=== PATIENT | female | born 1955 | race Caucasian/White ===

== ENCOUNTER 2024-09-30 08:39 | Day surgery (SDC) | payer MEDICARE, SELFPAY ==
[2024-09-26 12:50] VITALS: BMI 21.9
[2024-09-30 08:47] VITALS: BMI 21.3
[2024-09-30] MEDS: Lactated Ringers 1,000 ML 80 ML IVCONT (09:00)
[2024-09-30 09:06] VITALS: BP 141/65; PULSE 87; RESP 18; TEMP 36.7; O2SAT 96
--- NOTE | 2024-09-30 09:54 | MHC.SHP ---
Pre-Procedural Eval Section A - 24 Hr Update-Section A only Date of Service: 09/30/24 The patient is an INPATIENT: No Changes since office visit: No Cold of Flu in the past 2 weeks, No New Medical Problems, No Changes in Medication and No Patient answered all questions The patient has been examined within 24 hours of the surgical procedure. The History & Physical has been completed within 30 days and I have reviewed it.: Yes Section B - Complete if H&P > 30 days Chief Complaint: screening Allergies: Allergies Allergy/AdvReac Type Severity Reaction Status Date / Time mold Allergy Unknown Unknown Verified 09/30/24 09:21 metals Allergy Unknown Unknown Uncoded 09/30/24 09:21 Plan I have reviewed the history and physical and performed a pertinent physical examination on my patient. No changes have occurred unless specified. Time Spent With Patient Time: Total time managing care of this patient today ____ minutes.
--- NOTE | 2024-09-30 10:00 | HO.ANESPROP2 ---
HPI - Anesthesia Eval Consult details Narrative: 68 yo F presenting for colonoscopy [facility] Past Medical History Medical History HTN (hypertension) Family History Family history of problems with anesthesia: No Surgical History Surgical History Hx of appendectomy History of lumpectomy of right breast H/O colonoscopy History of Problems with Anesthesia: No Social History Social History (Updated 09/26/24 @ 12:50 by Gauri Rios RN) Are you a primary intensive care medicine specialist to a significant other at home: No Do you presently have visiting nurse or other home services: No Patient Tobacco Use Status: Never used Tobacco Use of substances other than those prescribed or required for medical reasons: No Have you been hit, kicked, punched, or otherwise hurt by someone within the past year? If so, by whom?: No Are you DNR?: No Advance Directives: No Advance Directives Information Provided: Yes Recently lost weight without trying: No Nutrition Risks: No Nutritional Risk Meds Allergies Allergy/AdvReac Type Severity Reaction Status Date / Time mold Allergy Unknown Unknown Verified 09/30/24 09:21 metals Allergy Unknown Unknown Uncoded 09/30/24 09:21 Active Medications: Current Medications Lactated Ringer's (Lr) 1,000 mls @ 80 mls/hr IVCONT .[id number] SUSHANT Last Admin: 09/30/24 09:00 Dose: 80 mls/hr Home Medications ?Medication ?Instructions ?Recorded ?Confirmed ?Last Taken ?Type fexofenadine 60 mg tablet 60 mg PO DAILY PRN Allergy Symptoms 09/26/24 09/26/24 Unknown History hydrochlorothiazide 12.5 mg tablet 12.5 mg PO DAILY 09/26/24 09/26/24 Unknown History Exam Exam Date and Time: 09/30/24 1000 Height,Weight and Vital Signs: Height 5 ft 7 in Weight 61.689 kg Last Vital Signs Temp 98.1 F 09/30/24 09:06 Pulse 87 09/30/24 09:06 Resp 18 09/30/24 09:06 BP 141/65 H 09/30/24 09:06 Pulse Ox 96 09/30/24 09:06 O2 Del Method Room Air 09/30/24 09:06 Airway Mallampati Class: I TM Dist: >3cm Neck ROM: Full Loose/Missing/Broken Teeth: No (patient denies any loose or broken teeth) Heart: S1S2 Lungs: CTAB Assessment and Plan Assessment Anesthesia Assessment: Anesthesia Plan Discussed and Chart Reviewed Final Anesthetic Review Family History of Problems with Anesthesia: No History of Problems with Anesthesia: No NPO: Yes ASA Class: II Final Preanesthetic Review: No Changes in Pt Med Stat, Meds/Allgs Chart Reviewed, Consent Obtained/Reviewed and Anes Risks/Benef Reviewed Patient Risk: Low Procedure Risk: Low Anesthetic Plan Anesthetic Plan: MAC: and Agree w/ Assess. and Plan Disposition: Standard PACU
[2024-09-30 10:28] VITALS: BP 104/53; PULSE 74; RESP 16; TEMP 36.6; O2SAT 97
--- NOTE | 2024-09-30 10:43 | OP_ITS ---
DATE OF SERVICE: 09/30/2024 SURGEON: David Finnegan MD INDICATIONS: Colon cancer screening and prior history of adenomatous colon polyps. PREOPERATIVE DIAGNOSIS: POSTOPERATIVE DIAGNOSIS: PROCEDURE PERFORMED: Colonoscopy to the terminal ileum. ESTIMATED BLOOD LOSS: COMPLICATIONS: ANESTHESIA: Monitored anesthesia care. ASSISTANTS: SPECIMENS: DESCRIPTION OF PROCEDURE: A history and physical was performed. The risks and benefits of the procedure were explained to the patient and informed consent was obtained. The patient was placed in the left lateral decubitus position. A digital rectal exam was performed and was found to be normal. The Olympus pediatric video colonoscope was introduced into the rectum and advanced to the cecum. The cecum was identified by transillumination, palpation, and identification of ileocecal valve. Examination was performed and the scope was removed. She tolerated the procedure well and was returned to recovery area in stable condition. FINDINGS: The terminal ileum was examined and appeared normal. The visualized colonic mucosa was normal. The quality of the prep was good. No polyps were identified. Retroflexed examination was normal. IMPRESSION: Normal colonoscopy. RECOMMENDATIONS: 1. Follow up as needed. 2. Repeat colonoscopy is recommended in 10 years for average-risk individuals. MD KB Jarrett/VICK / [phone]
--- OUTSIDE RECORDS SUMMARY | 2024-10-01 16:22 | XMS_ITS ---
Author Organization [facility] Address [address] [place] [address] Care Team Providers Care Business Broker Name Role Phone Alaina Colby MD Primary Care Provider David Schmitt Jr Unavailable ALLERGIES Allergen (clinical drug ingredient) Drug/Non Drug Allergy documented on EMR Reaction Allergy Type Onset Date Status mold,metals (uncoded) Unknown Allergy Active REASON FOR VISIT Patient presents today for a recall colonoscopy MEDICATIONS Medication SIG (Take, Route, Frequency, Duration) Notes Start Date End Date Status hydroCHLOROthiazide 12.5 MG 1 tablet in the morning Orally Once a day for 30 day(s) Active Jessica Allergy 60 MG 1 tablet as needed Orally Once a day Active MiraLax (colon prep) 17 GM/SCOOP mixed with Gatorade or Crystal Light Orally begin at 5:00 p.m. the day before the procedure for 1 day 09/08/2024 Active SOCIAL HISTORY Tobacco Use: Social History Observation Description Date Details (start date - stop date) Never Smoker NA - NA Sex Assigned At : Social History Observation Description Sex Assigned At Unknown Tobacco Use/Smoking Question Answer Notes Patient is a nonsmoker Alcohol Screen Question Answer Notes Did you have a drink contain ing alcohol in the past year? Yes How often did you have a dri nk containing alcohol in the past year? Monthly or less (1 point) How many drinks did you have on a typical day when you were drinking in the past year? 1 or 2 drinks (0 point) How often did you have 6 or more drinks on one occasion in the past year? Never (0 point) Points 1 Interpretation Negative VITAL SIGNS BMI 21.98 kg/m2 09/08/2024 Blood pressure systolic 000 mm Hg 09/08/20 24 Blood pressure diastolic 00 mm Hg 024 Height 67 in 09/08/2024 Temperature 97.7 degrees Fahrenheit 09/08/20 24 Weight 140 lb 6 oz lbs 09/08/2024 Encounters Encounter Location Date Provider Diagnosis [facility] [address] [place] [address] 09/08/2024 David Finnegan Jr Colon cancer screening Z12.11 ; Encounter for other preprocedural examination Z01.818 and [facility] current use of diuretic Z79.899 ASSESSMENTS Encounter Date Diagnosis Assessment Notes Treatment Notes Treatment Clinical Notes 09/08/2024 Colon cancer screening (ICD-10 - Z12.11) Colonoscopy material was printed 09/08/2024 Encounter for other preprocedural examination (ICD-10 - Z01.818) 09/08/2024 [facility] current use of diuretic (ICD-10 - Z79.899) PLAN OF TREATMENT Medication Medication Name Sig Start Date Stop Date Notes MiraLax (colon prep) 17 GM/SCOOP mixed with Gatorade or Crystal Light Orally begin at 5:00 p.m. the day before the procedure for 1 day 09/08/2024 Treatment Notes Assessment Notes Colon cancer screening Colonoscopy mater ial was printed Future Test Test Name Order Date COLONOSCOPY 09/08/2024 Next Appt Details Follow Up: 1 Year, Reason: Progress Notes * Examination Category Sub-Category Detail Notes General Examination GENERAL APPEARANCE: in no ac cabazon distress HEAD: normocephalic EYES: sclera non-icteric NECK/THYROID: no lymphadenopathy HEART: S1, S2 normal, no mu rmurs CHEST: normal shape and exp ansion LUNGS: clear to auscultatio n bilaterally ABDOMEN: soft, nontender, non distended, bowel sounds present, no organomegaly SKIN: anicteric EXTREMITIES: no clubbing, cyanosi s, or edema PSYCH: cognitive function i ntact ORAL CAVITY: mucosa moist
--- OUTSIDE RECORDS SUMMARY | 2024-10-01 16:22 | XMS_ITS ---
Author Organization [facility] Address [address] [place] [address] Care Team Providers Care Rec Therapist Name Role Phone Alaina Colby MD Primary Care Provider David Schmitt Jr REASON FOR VISIT screening Encounters Encounter Location Date Provider Diagnosis [facility] [place] [address] [place], [place] [phone] 09/30/2024 Davdi Finnegan Jr PLAN OF TREATMENT No Information
--- OUTSIDE RECORDS SUMMARY | 2024-10-01 16:23 | XMS_ITS | Patient Health Record ---
Author Organization [facility] Address [address] [place] [address] Care Team Providers Care Line Walker Name Role Phone Alaina Colby MD Primary Care Provider David Schmitt Jr Unavailable ALLERGIES Allergen (clinical drug ingredient) Drug/Non Drug Allergy documented on EMR Reaction Allergy Type Onset Date Status mold,metals (uncoded) Unknown Allergy Active REASON FOR REFERRAL No Information MEDICATIONS Medication SIG (Take, Route, Frequency, Duration) [...] the procedure for 1 day 09/08/2024 Active IMMUNIZATIONS Vaccine Route Administration Date Status Comme nts Influenza Unknown 08/15/2018 Administered Influenza Unknown 08/26/2024 Administered SOCIAL HISTORY Tobacco Use: Social History Observation [...] Never (0 point) Points 1 Interpretation Negative PROBLEMS Problem Type ICD Code Onset Dates Problem Status W/U Status Risk SNOMED Code Notes Problem Colon cancer screening (Z12.11) Active confirmed 381980021 Problem Encounter for other preprocedural examination (Z01.818) Active confirmed 339694992 Problem long-term current use of diuretic (Z79.899) Active confirmed [id number] VITAL SIGNS Temperature 97.7 degrees Fahrenheit 09/08/2024 Blood pressure diastolic 00 mm Hg 09/08/2024 Height 67 in 09/08/2024 Blood pressure systolic 000 mm Hg 09/08/2024 Weight 140 lb 6 oz lbs 09/08/2024 BMI 21.98 kg/m2 09/08/2024 Encounters Encounter Location Date Provider Diagnosis [facility] Out[facility] [address] [place], [place] [phone] 09/30/2024 David Finnegan Jr [facility] [address] [place] [address] 09/08/2024 David Finnegan Jr Colon cancer screening Z12.11 ; Encounter for other preprocedural examination Z01.818 and long-term current use of diuretic Z79.899 ASSESSMENTS Encounter Date Diagnosis Assessment Notes Treatment Notes Treatment Clinical Notes 09/08/2024 Colon cancer screening (ICD-10 - Z12.11) Colonoscopy material was printed 09/08/2024 Encounter for other preprocedural examination (ICD-10 - Z01.818) 09/08/2024 salvage determiner current use of diuretic (ICD-10 - Z79.899) PLAN OF TREATMENT Future Test Test Name Order Date COLONOSCOPY 07/16/2019 COLONOSCOPY 09/08/2024 Insurance Providers Payer Name Payer Address Payer Phone Subscriber Number Group Number Insured Name Patient Relationship to Insured Coverage Start Date Coverage End Date [facility] [address] [place] [address] [id number] DEJA [place] Self - patient is the insured MEDICAL (GENERAL) HISTORY Medical History History ICD Code Environmental allergies Hypertension Colonoscopy 08/09, tubular adenoma, five -year followup Surgical History Surgery Date(Month/Year) lumpectomy, right breast appendectomy
== END 2024-09-30 11:19 | disposition home or self-care (01) ==
PROVIDERS: PCP Internal Medicine; Visit Provider Internal Medicine Gastroenterology
PROC: 0DJD8ZZ Inspection of Lower Intestinal Tract, Via Natural or Artificial Opening Endoscopic (ICD-10-PCS; CPT 45378; principal; 2024-09-30 11:00)
DX: Z12.11 Encounter for screening for malignant neoplasm of colon (principal); Z86.0101 Personal history of adenomatous and serrated colon polyps; I10 Essential (primary) hypertension; J30.2 Other seasonal allergic rhinitis; Z79.899 Other long term (current) drug therapy
CPT/HCPCS: G0105; J2003; J2704

== ENCOUNTER 2025-05-07 14:51 | Outpatient (AMB) | payer MEDICARE, SELFPAY ==
--- OUTSIDE RECORDS SUMMARY | 2024-09-30 07:00 | XMS_ITS ---
Author Organization [facility] Address [address] [place] [address] Care Team Providers Care Salvage Winder And Inspector Name Role Phone SLIME LAO Primary Care Provider David Wadsworth Jr Unavailable REASON FOR VISIT screening Encounters Encounter Location Date Provider Diagnosis [facility] [place] [address] [place] [phone] 09/30/2024 David Finnegan Jr Colon cancer screening Z12.11 and Personal history of colonic polyps Z86.0100 Assessments Encounter Date Diagnosis (ICD Code) Assessment Notes Treatment Notes Treatment Clinical Notes Section Notes 09/30/2024 Colon cancer screening (ICD-10 - Z12.11) 09/30/2024 Personal history of colonic polyps (ICD-10 - Z86.0100) Plan Of Treatment No Information Progress Notes * DEJA GALVEZDOB: [birth year] (69 yo F)Acc No.[id number]:09/30/2024 COLON WITH MAC Patient: Guerrero ROMANDEJA HAYNES Provider: Rosa Maria Finnegan MD :1955 A ge:68 Y S ex:Female Date:09/30/2024 Address:[address] [place] [address] Pcp:SLIME LAO Subjective: * Chief Complaints: * 1 . Screening. * Medical History: Objective: * Vitals: Assessment: * Assessment: 1. C olon cancer screening - Z12.11 (Primary) 2 . P ersonal history of colonic polyps - Z86.0100 Plan: * Treatment: * Procedure Codes: 4 5378 DIAGNOSTIC COLONOSCOPY, 0529F INTRVL 3+YRS PTS CLNSCP DOCD, 0528F RCMND FLW-UP 10 YRS DOCD * * The named appointment provid er may or may not be the originator of this progress note, and it is not deemed complete until electronically signed by the appointment provider. Sign off status: Pending * Provider: Rosa Maria Finnegan MD Date: 1 2023 Generated for Dina montano/Hui/Leidaitting on: 0 05/07/2025 03:32 PM EDT
--- NOTE | 2025-05-07 14:51 | MHC.PC.OV ---
Vital Signs 05/07/25 14:59 Height 5 ft 5.51 in Weight 145 lb BMI 23.8 BP 144/80 H Blood Pressure Location Rt brachial Position Sitting Respiration 20 Pulse 65 Pulse Source Pulse Oximeter Temp 99.1 F Temp Source Temporal Artery Scan Pulse Oximetry (%) 95 Oxygen Delivery Method Room Air Intake Visit Reasons: Est. Care HTN Associate Director Of Biostatistics Required: No Accompanied by: Self / Same As Patient Allergies mold Allergy (Unknown, Verified 05/07/25 15:56) Unknown metals Allergy (Unknown, Uncoded 05/07/25 15:56) Unknown Medication List - Last Reconciled 05/07/25 by Simin River PA-C cholecalciferol (vitamin D3) 50 mcg PO DAILY fexofenadine 60 mg PO DAILY PRN hydrochlorothiazide 12.5 mg PO DAILY Tobacco use date assessed: 05/07/25 Fall risk assessment: No Falls in past year Last assessed Fall Risk: 05/07/25 Dental Screening Dental Screen Date: 05/07/25 Did you have a dental visit in the last 12 months?: Yes Did you have a dental problem in the last 6 months where you did not have access to dental care?: No Was dental information given to patient?: Patient has dentist HPI Est. Care HTN HPI Details The patient is a 69-year-old female presenting to a establish a new Primary care provider and management of chronic conditions. 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 Her blood pressure was slightly elevated at 144 mmHg during this visit. The patient had a normal colonoscopy on September 30, 2024, with a 10-year follow-up plan. She is scheduled for a mammogram in September and a bone density scan on July 24. [facility] Medical History Encounter for preventive care Establishing care with new doctor, encounter for HTN (hypertension) Surgical History Hx of appendectomy History of lumpectomy of right breast H/O colonoscopy (~09/30/24) Family History Father Diabetes Heart problem Mother Dementia Social History Housing: House Are you a primary child care associate teacher to a significant other at home: No Do you presently have visiting nurse or other home services: No Alcohol intake: current Alcohol intake frequency: holidays/special occasions only Alcohol type: wine Patient Tobacco Use Status: Former Tobacco user service: No Current occupational status: employed Cognitive needs: No Hearing needs: No Vision needs: Yes (rx glasses) Questionnaire PHQ-9 Over the last 2 weeks, how often have you been bothered by any of the following problems? 1. Little interest or pleasure in doing things: not at all 2. Feeling down, depressed, or hopeless: not at all 3. Trouble falling or staying asleep, or sleeping too much: not at all 4. Feeling tired or having little energy: not at all 5. Poor appetite or overeating: not at all 6. Feeling bad about yourself - or that you are a failure or have let yourself or your family down: not at all 7. Trouble concentrating on things, such as reading the newspaper or watching television: not at all 8. Moving or speaking so slowly that other people could have noticed. Or the opposite - being so fidgety or restless that you have been moving around a lot more than usual: not at all 9. Thoughts that you would be better off or of hurting yourself in some way: not at all Total score: 0 Depression Screening Interpretation: Negative Depression Screening Done: Yes 18210 - PHQ-9 Billing: Yes Source: Developed by Drs. Grant Campos, Naomy Figueroa, Andi Altamirano and colleagues, with an educational eda from [employer]. Thrive Questionnaire Date Thrive assessed: 05/07/25 I am a: Patient What is your living situation today?: I have a steady place to live Within the past 12 months, did the food you bought not last and you didn't have the money to get more?: Never true Within the past 12 months, did you worry whether your food would run out before you got money to buy more?: Never true Do you have trouble paying for medicines?: No Do you have trouble getting transportation to medical appointments?: No Do you have trouble paying your heating and electricity bill?: No Do you have trouble taking care of your child, family member or friend?: No Do you have trouble with day-to-day activities such as bathing, preparing meals, shopping, managing finances, etc.?: No Are you currently unemployed and looking for a job?: No Are you interested in more education?: No Please select the resources that you would like help with: None Currently or been in a relationship where the following occur: No concerns reported THRIVE Score: 0 AUDIT C Alcohol Use Questionnaire (AUDIT-C) 1. How often do you have a drink containing alcohol?: Monthly or less 2. How many drinks containing alcohol do you have on a typical day when you are drinking?: 1 or 2 3. How often do you have six or more drinks on one occasion?: Never Total Score: 1 Score Reviewed/Action Taken: No LACY-7 AMB Questionnaire LACY-7 Date LACY - 7 assessed: 05/07/25 Feeling nervous, anxious, or on edge: 0 = Not at all Not being able to stop or control worryin = Not at all Worrying too much about different things: 0 = Not at all Trouble relaxin = Not at all Being so restless that it is hard to sit still: 0 = Not at all Becoming easily annoyed or irritable: 0 = Not at all Feeling afraid as if something awful might happen: 0 = Not at all Total LACY-7 score (0-4 normal; 5-9 mild; 10-14 moderate; 15-21 severe): 0 Source: Developed by Drs. Grant Campos, Naomy Figueroa, Andi Altamirano and colleagues, with an educational eda from [employer]. LACY-7 Assessment Billing LACY-7 Assessment Tool: LACY-7 Assessment 91113 Review of Systems Const Details: - Cardiovascular: Denies chest pain, orthopnea, or syncope. - Gastrointestinal: Denies black or bloody stools, abdominal pain. - Respiratory: Denies dyspnea or shortness of breath. - Musculoskeletal: Denies recent falls. Physical exam (Primary Care) Vital Signs: Last Vital Signs Temp 99.1 F 05/07/25 14:59 Pulse 65 05/07/25 14:59 Resp 20 05/07/25 14:59 BP 144/80 H 05/07/25 14:59 Pulse Ox 95 05/07/25 14:59 Oxygen Delivery Method Room Air 05/07/25 14:59 Care Plan Goal for BP management: <140/90 patient to monitor her blood pressure at home and bring blood pressure log at next visit BMI result Body Mass Index 23.8 Normal BMI Tobacco/Smoking Status: Tobacco use Status Tobacco use date assessed 05/07/25 05/07/25 14:59 Patient Tobacco Use Status Former Tobacco user 05/07/25 15:10 PHQ-9: PHQ-9 Score PHQ-9: Total score 0 05/07/25 14:59 Depression Screening Interpretation: Negative Thrive Assessment: Date of Thrive Assessment Date Thrive assessed 05/07/25 05/07/25 14:59 Currently or been in a relationship where the following occur: No concerns reported Const Other: Appearance: Alert. Oriented X3. No acute distress. Head: Normal external exam. Normocephalic. Atraumatic. Eyes: Pupils are equal, round, and reactive to light. Extraocular movements intact. Conjunctiva and sclera normal. Eyelids normal. Ears: External auditory canal normal. Tympanic membranes normal. Throat: Pharynx normal. Uvula midline. Moist mucous membranes. Neck: Normal inspection. Neck supple. Full range of motion. No adenopathy. Thyroid Normal. No meningeal signs. No neck mass noted. Cardiovascular: Normal heart rate and rhythm. Heart sound normal. No murmurs noted. Pulses normal throughout. Respiratory: No respiratory distress. Painless inspiration. Breath sounds normal. No wheezes/rales/rhonchi noted. Chest nontender. No accessory muscle usage noted or decreased air movement noted. Abdomen: Soft and nontender. Bowel sounds normal in all 4 quadrants. No distention noted. No organomegaly noted. No visible injury noted. Back: No costovertebral angle tenderness. Full range of motion noted. Skin: Skin warm and dry. Normal skin color. Normal skin turgor. No rashes/lesions/lacerations noted. Extremities: No lower extremity edema. Extremities exhibit normal range of motion. Extremities nontender. Neuro: Oriented X 3. No motor deficit. No sensory deficit. Reflexes normal. Coding Level of Care Code New Pt Level 4 (21486) Complex EM visit Add On G2211 Diagnoses Establishing care with new doctor, encounter for Z76.89 HTN (hypertension) I10 Encounter for preventive care Z00.00 Additional Codes PHQ-9 - 80295 - PHQ-9 Billing: Yes ([id number]) LACY-7 Assessment Billing - LACY-7 Assessment Tool: LACY-7 Assessment 27929 ([id number]) Assessment & Plan Assessment & Plan (1) Establishing care with new doctor, encounter for: Code(s): Z76.89 - Persons encountering health services in other specified circumstances Category: Medical (2) HTN (hypertension): Code(s): I10 - Essential (primary) hypertension Category: Medical Plan: The patient's essential hypertension is managed with hydrochlorothiazide, and her blood pressure was slightly elevated at 144 mmHg during this visit. It was advised to monitor and keep a blood pressure log and bring at next visit. Condition is chronic and stable continue to monitor. (3) Encounter for preventive care: Code(s): Z00.00 - Encounter for general adult medical examination without abnormal findings Category: Medical Plan: The patient had a normal colonoscopy on September 30, 2024, and is on a 10-year follow-up plan. The patient is scheduled for a mammogram in September. The patient has a bone density scan scheduled for July 24. Plan Plan Patient was informed and verbally consented to the use of an ambient scribe for clinic note documentation during this visit. 1. Essential Hypertension The patient's essential hypertension is managed with hydrochlorothiazide, and her blood pressure was slightly elevated at 144 mmHg during this visit. It was advised to monitor and retake it. 2. Preventative Care: Colonoscopy The patient had a normal colonoscopy on September 30, 2024, and is on a 10-year follow-up plan. 3. Preventative Care: Mammogram The patient is scheduled for a mammogram in September. 4. Preventative Care: Bone Density Scan The patient has a bone density scan scheduled for July 24. During the visit, we discussed the management of the patient's essential hypertension, emphasizing the importance of monitoring her blood pressure and ensuring medication adherence. We also reviewed her preventative care schedule, confirming the normal results of her recent colonoscopy and the upcoming mammogram and bone density scan appointments. Patient Instructions: - Continue taking hydrochlorothiazide as prescribed. - Monitor blood pressure regularly and report any significant changes. - Attend scheduled mammogram and bone density scan appointments. - Follow up in six months or sooner if needed.
[2025-05-07 14:59] VITALS: BP 144/80; PULSE 65; RESP 20; TEMP 37.3; O2SAT 95; BMI 23.8
== END 2025-05-07 15:36 | disposition home or self-care (01) ==
LOC: HO.HMCSH 14:51
PROVIDERS: Visit Provider Physician Assistant Medical
DX: Z76.89 Persons encountering health services in other specified circumstances (principal); I10 Essential (primary) hypertension; Z00.00 Encounter for general adult medical examination without abnormal findings

== ENCOUNTER → 2025-05-07 14:51 | Outpatient (BNVA) | payer MEDICARE, SELFPAY | PROVIDERS: Visit Provider Physician Assistant Medical | DX: Z00.00 Encounter for general adult medical examination without abnormal findings (principal); I10 Essential (primary) hypertension; Z76.89 Persons encountering health services in other specified circumstances | CPT/HCPCS: 96127; 99202 ==

== ENCOUNTER 2025-08-04 10:05 | Outpatient (REF) | payer MEDICARE, SELFPAY ==
--- OUTSIDE RECORDS SUMMARY | 2024-09-30 07:00 | XMS_ITS ---
Author Organization [facility] Address [address] [place] [address] Care Team Providers Care Sales Assistant Entertainment And Media Name Role Phone SLIME LAO PA-C Primary Care Provider David Zaidi Jr Unavailable REASON FOR VISIT screening Encounters Encounter Location Date Provider Diagnosis [facility] Outpatient [address] [place], [place] [phone] 09/30/2024 David Finnegan Jr Colon cancer screening Z12.11 and Personal history of colonic polyps Z86.0100 Assessments Encounter Date Diagnosis (ICD Code) Assessment Notes Treatment Notes Treatment Clinical Notes Section Notes 09/30/2024 Colon cancer screening (ICD-10 - Z12.11) 09/30/2024 Personal history of colonic polyps (ICD-10 - Z86.0100) Plan Of Treatment No Information Progress Notes * DEJA GALVEZDOB: [birth year] (69 yo F)Acc No.[id number]:09/30/2024 COLON WITH MAC Patient: DEJA LUNA Provider: Rosa Maria Finnegan MD :1955 A ge:68 Y S ex:Female Date:09/30/2024 Address:[address] [place] [address] Pcp:SLIME LAO PA-C Subjective: * Chief Complaints: * 1 . [...] 1 2023 Generated for Dina montano/Hui/Leidaitting on: 11:37 AM EDT
--- NOTE | ~2025-08-04 | MM_ITS ---
EXAMINATION: DXA BONE DENSITY AXIAL HISTORY: M81.0 - Age-related osteoporosis without current pathological fracture TECHNIQUE: Chalkable Dual energy absorptiometry (DEXA) of the lumbar spine, total left hip, and femoral neck was performed. COMPARISON: There are no prior studies for comparison. FINDINGS: The bone mineral density of the lumbar spine is 0.927 g/cm2, corresponding to a T-score of -2.0, and a Z-score of -0.4. This is indicative of osteopenia. The bone mineral density of the left total hip is 0.747 g/cm2, corresponding to a T-score of -2.1, and a Z-score of -0.7. This is indicative of osteopenia. The bone mineral density of the left femoral neck is 0.740 g/cm2, corresponding to a T-score of -2.1, and a Z-score of -0.5. This is indicative of osteopenia. FRACTURE RISK: The FRAX index suggests a risk of major osteoporotic fracture of 11.9%, and of hip fracture 2.4%. MM/XR DEXA axial skeleton IMPRESSION: Based on bone mineral density, and according to World Health Organization (WHO) criteria, the diagnosis is consistent with osteopenia. Statistically, 68% of repeat scans fall within 1 SD (+/- 0.010 g/cm2 for AP spine L1-L4) and 1 SD (+/- 0.012 g/cm2 for femur total) FRAX is a trademark of the [employer] [place] for Metabolic Bone Disease, a World Health Organization (WHO) Collaborating Center. Electronically signed by: Grant Weaver MD 08/04/2025 10:34 AM EDT
--- OUTSIDE RECORDS SUMMARY | 2025-08-04 11:36 | XMS_ITS | Encounter Summary ---
Author Organization [facility] Address [address] [place] [phone] Phone Care Team Providers Care Bottling Supervisor Name Role Phone Alaina Colby MD Primary Care Provider Simin River Primary Care Provider [phone] Encounter Details Date Type Department Care Team (Late st Contact Info) Description 08/31/2023 Transcribe Orders Virtual Department [address] [place] [address] Alaina Colby MD [address] [place] [phone] [email or web address] Breast screening (Primary Dx) Social History Tobacco Use Types Packs/Day Years Used Date Smoking Tobacco: Former Cigarettes 0 03/22/1979 - 09/21/1982 Smokeless Tobacco: Never Comments:Smoked as a yound a dult socially fur a couple of years Alcohol Use Standard Drinks/Week Comments Not Currently 0 (1 standard drink = 0.6 oz pur e alcohol) rare Education Answer Date Recorded Are you interested in more education? Not on tammie e 02/16/2023 Are you concerned about learning? Not on file 02/16/2023 No 02/16/2023 No 02/16/2023 Digital Access Answer Date Recorded No 03/19/2023 No 03/19/2023 Reliable internet access at home? Not on file 03/19/2023 Device with a working camera? Not on file Comments No Sex and Gender Information Value Date Recorded Sex Assigned at Not on file Legal Sex Female 9:53 PM EDT Gender Identity Not on file Sexual Orientation Not on file documented as of this encounter Plan of Treatment Upcoming Encounters Date Type Department Care Team (Late st Contact Info) Description 03/18/2025 Procedure Pass [address] [place] [address] 10/05/2025 8:30 AM EST Appointment [address] [place] [address] Petty Marshall PA [address] [place] [address] [email or web address] t documented as of this encounter Results * (ABNORMAL) BI MAMMOGRAM SCREENING WITH TOMOSYNTHESIS WITH CAD (BILATERAL) (11/13/2023 3:35 PM EST) Anatomical Region Laterality Modality Breast Left, Breast Right, Breast Bilateral Bila teral Mammography 11/16/2023 5:29 PM EST Impressions 11/19/2023 9:08 AM EST Recommend additional imaging for possible new 1 cm mass in the posterior outer right breast. No other findings suspicious for malignancy. The radiology of pulmonary will attempt to recall the patient for the additional imaging. BI-RADS CATEGORY: 0 - Incomplete. Need additional imaging evaluation. DENSITY: The breast tissue is heterogeneously dense, which could obscure a lesion on mammography. LEFT RECOMMENDATION DUE DATE: 12 Months Left Mammography Screening RIGHT RECOMMENDATION DUE DATE: 1 Month Right Additional Imaging Recall imaging: Spot compression CC, 90 degrees ML views of the right breast, right breast ultrasound. Narrative 11/19/2023 9:08 AM EST Bilateral mammography is performed in conjunction with computed aided detection. 3-D tomography along with 2-D C view imaging was also performed. Comparison made to previous dated as far back as 03/28/2017 and as recent as 09/13/2022. Possible new obscured sub-centimeter mass in the posterior outer right breast on the cc view not visualized on the MLO view. No other suspicious masses, areas of architectural distortion or suspicious microcalcifications. Stable diffuse microcalcifications with benign characteristics on the left. Procedure Note Aniket Perez MD - 11/19/2023 Bilateral mammography is performed in conjunction with computed aideddetection. 3-D tomography along with 2-D C view imaging was alsoperformed. Comparison made to previous dated as far back as 03/28/2017 andas recent as 09/13/2022. Possible new obscured sub-centimeter mass in the posterior outer rightbreast on the cc view not visualized on the MLO view. No other suspicious masses, areas of architectural distortion orsuspicious microcalcifications. Stable diffuse microcalcifications withbenign characteristics on the left. IMPRESSION: Recommend additional imaging for possible new 1 cm mass in the posteriorouter right breast. No other findings suspicious for malignancy. The radiology of [facility] will attempt to recall the patient for theadditional imaging. BI-RADS CATEGORY: 0 - Incomplete. Need additional imaging evaluation. DENSITY: The breast tissue is heterogeneously dense, which could obscurea lesion on mammography. LEFT RECOMMENDATION DUE DATE: 12 Months Left Mammography Screening RIGHT RECOMMENDATION DUE DATE: 1 Month Right Additional Imaging Recall imaging: Spot compression CC, 90 degrees ML views of the rightbreast, right breast ultrasound. Alaina Colby MD IMG MG EXAMS Final Resul t documented in this encounter Visit Diagnoses Diagnosis Breast screening- Primary Breast screening, unspecified Breast screening Breast screening, unspecified documented in this encounter Additional Health Concerns Infection Onset Date Last Indicated Resolved Time CDiff-Risk 05/12/2024 05/16/2024 05/16/2024 11:5 2 AM EDT CoV-Risk 05/12/2024 05/12/2024 05/23/2024 1:22 AM EDT documented as of this encounter Care Teams Bottling Supervisor Relationship Specialty Start Date End Date Alaina Colby MD [address] [place] [phone] [email or web address] PCP - General Internal Medicine 09/21/17 07/19/25 Simin River PA [address] [place] [phone] PCP - General Physician School Supervisor 07/20/25 documented as of this encounter Additional Source Comments The information contained in this document represents components of the legal health record. It is not the complete legal health record.[facility]
--- OUTSIDE RECORDS SUMMARY | 2025-08-04 11:36 | XMS_ITS | Encounter Summary ---
Author Organization [facility] Address [address] [place] [phone] Phone Care Team Providers Care Brake Mechanic Name Role Phone Alaina Colby MD Primary Care Provider Alaina Colby MD Unavailable [phone] Simin River Primary Care Provider [phone] Encounter Details Date Type Department Care Team (Latest Contact Info) Description 05/30/2018 Transcribe Orders [facility] [address] [place] [address] Petty Marshall PA [address] [place] [address] [email or web address] Elevated bilirubin (Primary Dx); Essential hypertension, malignant Social History Tobacco Use Types Packs/Day Years Used Date Smoking Tobacco: Never Assessed Comments Unknown Sex and Gender Information Value Date Recorded Sex Assigned at Not on file Legal Sex Female 9:53 PM EDT Gender Identity Not on file Sexual Orientation Not on file documented as of this encounter Plan of Treatment Upcoming Encounters Date Type Department Care Team (Late st Contact Info) Description 03/18/2025 Procedure Pass [address] [place] [address] 10/05/2025 8:30 AM EST Appointment [address] [place] [address] Petty Marshall PA [address] [place] [address] .ne t documented as of this encounter Results * (ABNORMAL) Comprehensive metabolic panel (05/30/2018 7:42 AM EDT) SODIUM 141 133 - 146 mmol/L [facility] POTASSIUM 4.2 3.3 - 5.1 mmol/L [facility] CHLORIDE 101 96 - 108 mmol/L [facility] CO2 26 21 - 35 mmol/L [facility] BUN 20(H) 6 - 19 mg/dL [facility] CREATININE 0.80 0.5 - 1.5 mg/dL [facility] GLUCOSE 100(H) 70 - 99 mg/dL [facility] ALBUMIN 4.4 3.9 - 4.8 g/dL [facility] TOTAL PROTEIN 7.2 6.5 - 8.0 g/dL [facility] CALCIUM 9.3 8.4 - 10.3 mg/dL [facility] ALKALINE PHOSPHATASE 71 39 - 117 U/L [facility] TOTAL BILIRUBIN 1.4(H) 0.0 - 1.2 mg/dL [facility] AST 27 0 - 37 U/L [facility] ALT 18 0 - 40 U/L [facility] GLOBULIN 2.8 1 - 4.8 g/dL [facility] EGFR 80 >59 mL/min/1.7 3m2 [facility] Comment:If patient is black, multiply result by 1.159. Estimated glomerular filtration rate calculated using the CKD-EPI equation. ANION GAP 18 10 - 20 mmol/L [facility] Blood 05/30/2018 7:42 AM EDT 05/30/2018 7:47 AM EDT us Petty [facility] BLOOD ORDERABLES Final Resu lt [facility] [address] [place] [address] documented in this encounter Visit Diagnoses Diagnosis Elevated bilirubin- Primary Essential hypertension, malignant documented in this encounter Additional Health Concerns Infection Onset Date Last Indicated Resolved Time CDiff-Risk 05/12/2024 05/16/2024 05/16/2024 11:5 2 AM EDT CoV-Risk 05/12/2024 05/12/2024 05/23/2024 1:22 AM EDT documented as of this encounter Care Teams Brake Mechanic Relationship Specialty Start Date End Date Alaina Colby MD [address] [place] [address] [email or web address] PCP - General Internal Medicine 09/21/17 07/19/25 Simin River PA [address] [place] [phone] PCP - General Physician Mother Tester 07/20/25 Alaina Colby MD [address] [place] [address] [email or web address] Insurance Assigned Provider 01/29/21 02/25/22 documented as of this encounter Additional Source Comments The information contained in this document represents components of the legal health record. It is not the complete legal health record.[facility]
--- OUTSIDE RECORDS SUMMARY | 2025-08-04 11:36 | XMS_ITS | Encounter Summary ---
Author Organization [facility] Address [address] [place] [address] Phone Care Team Providers Care Healthcare Liaison Name Role Phone Alaina Colby MD Primary Care Provider [phone] Alaina Colby MD Unavailable [phone] Simin River Primary Care Provider [phone] Encounter Details Date Type Department Care Team (Latest Contact Info) Description 09/21/2017 Transcribe Orders [facility] [address] [place] [address] [place] [address] Petty Marshall PA [address] [place] [address] [email or web address] Routine medical exam (Primary Dx); Abnormal weight gain; Benign hypertension Social History Tobacco Use Types Packs/Day Years [...] st Contact Info) Description 03/18/2025 Procedure Pass [address] [place] [address] 10/05/2025 8:30 AM EST Appointment [address] [place] [address] Petty Marshall PA [address] [place] [address] [email or web address] documented as of this encounter Results * (ABNORMAL) Urinalysis (09/21/2017 8:54 AM EST) COLOR STRAW(A) Yellow [facility] CLARITY Clear [facility] GLUCOSE Negative Negative [facility] BILI Negative Negative [facility] KETONES Negative Negative [facility] SPECIFIC GRAVITY 1.025 1.005 - 1.030 [facility] BLOOD Trace(A) Negative [facility] PH 5.5 5.0 - 8.0 [facility] Protein-UA Negative Negative [facility] NITRITE Negative Negative [facility] Leukocyte esterase, ur Negative Negative [facility] Urine (Urine) 09/21/2017 8:5 4 AM EST 09/21/2017 2:06 PM EST Petyt PENALOZA URINE ORDERABLES Final Result Performing Organization Address City/State/[facility] Co de Phone Number [address] [address] * (ABNORMAL) CBC (09/21/2017 8:54 AM EST) WBC 3.85 3.40 - 11.20 K/uL [facility] RBC 4.84(H) 3.80 - 4.80 M/uL [facility] HGB 14.5 12.0 - 15.0 g/dL [facility] HCT 41.6 36.0 - 46.0 % [facility] PLT 305 130 - 400 K/uL [facility] MCV 86.0 79.0 - 98.0 fL [facility] MCH 30.0 27.0 - 34.8 pg [facility] MCHC 34.9 31.5 - 36.0 g/dL [facility] RDW 12.6 10.8 - 14.6 % [facility] MPV 10.3 9.4 - 12.4 fl [facility] NRBC 0.00 /100 WBCs [facility] ABSOLUTE NRBC 0.00 K/uL [facility] Blood 09/21/2017 8:54 AM EST 09/21/2017 9:00 AM EST us Petty PENALOZA LAB BLOOD ORDERABLES Final Resu lt Performing Organization Address [facility]/ZIP Co de Phone Number [address] [address] * TSH with reflex (09/21/2017 8:54 AM EST) TSH 2.98 0.27 - 4.20 uIU/mL [facility] Blood 09/21/2017 8:54 AM EST 09/21/2017 9:00 AM EST us Petty PENALOZA LAB BLOOD ORDERABLES Final Resu lt Performing Organization Address [facility] Co de Phone Number [address] [address] * (ABNORMAL) Lipid panel (09/21/2017 8:54 AM EST) HDL 167 mg/dL [facility] Comment: Interpretation: Risk Level Females Decreased >55mg/dL Average 50-55 mg/dL Increased <50 mg/dL CHOLESTEROL 321(H) 0 - 240 mg/dL [facility] TRIGLYCERIDES 61 30 - 160 mg/dL [facility] LDL 142(H) 50 - 129 mg/dL [facility] Comment: LDL levels in terms of risk for coronary heart disease: <100 mg/dL: Optimal 100-129 mg/dL: Near or above optimal 130-159 mg/dL: Borderline high 160-189 mg/dL: High >190 mg/dL: Very High CARDIAC RISK RATIO 1.9(L) 3.3 - 4.4 [facility] Blood 09/21/2017 8:54 AM EST 09/21/2017 9:00 AM EST Petty Joanna PA LAB BLOOD ORDERABLES Final Resu lt Performing Organization Address City/[facility]/ZIP Co de Phone Number [address] [address] * (ABNORMAL) Comprehensive metabolic panel (09/21/2017 8:54 AM EST) SODIUM 139 133 - 146 mmol/L [facility] POTASSIUM 4.1 3.3 - 5.1 mmol/L [facility] CHLORIDE 99 96 - 108 mmol/L [facility] CO2 28 21 - 35 mmol/L [facility] BUN 24(H) 6 - 19 mg/dL [facility] CREATININE 0.90 0.5 - 1.5 mg/dL [facility] GLUCOSE 85 70 - 99 mg/dL [facility] ALBUMIN 4.3 3.9 - 4.8 g/dL [facility] TOTAL PROTEIN 7.2 6.5 - 8.0 g/dL [facility] CALCIUM 9.7 8.4 - 10.3 mg/dL [facility] ALKALINE PHOSPHATASE 66 39 - 117 U/L [facility] TOTAL BILIRUBIN 1.3(H) 0 - 1.2 mg/dL [facility] AST 21 0 - 37 U/L [facility] ALT 14 0 - 40 U/L [facility] GLOBULIN 2.9 1 - 4.8 g/dL [facility] EGFR >60 60 - 1000 mL/min/1.7 3m2 [facility] Comment:Abnormal if <60. If patient is -Honduran, multiply the result by 1.21. ANION GAP 16 10 - 20 mmol/L [facility] Blood 09/21/2017 8:54 AM EST 09/21/2017 9:00 AM EST us Petty PENALOZA LAB BLOOD ORDERABLES Final Resu lt [facility] [address] [place] [address] documented in this encounter Visit Diagnoses Diagnosis Routine medical exam- Primary Routine general medical examination at a health care facility Abnormal weight gain Benign hypertension Essential hypertension, benign documented in this encounter Additional Health Concerns Infection Onset Date Last Indicated Resolved Time CDiff-Risk 05/12/2024 05/16/2024 05/16/2024 11:5 2 AM EDT CoV-Risk 05/12/2024 05/12/2024 05/23/2024 1:22 AM EDT documented as of this encounter Care Teams Healthcare Liaison Relationship Specialty Start Date End Date Alaina Colby MD [address] [place] [address] [email or web address] PCP - General Internal Medicine 09/21/17 07/19/25 Simin River PA [address] [place] [address] PCP - General Physician Marketing Community Liaison 07/20/25 Alaina Colby MD [address] [place] [address] @[email or web address] Insurance Assigned Provider 01/29/21 02/25/22 documented as of this encounter Additional Source Comments The information contained in this document represents components of the legal health record. It is not the complete legal health record.[facility]
--- OUTSIDE RECORDS SUMMARY | 2025-08-04 11:36 | XMS_ITS | Encounter Summary ---
Author Organization [facility] Address [address] [place] [address] Phone Care Team Providers Care Key Operator Name Role Phone Alaina Colby MD Primary Care Provider Simin River Primary Care Provider [phone] Encounter Details Date Type Department Care Team (Latest Contact Info) Description 09/04/2022 Transcribe Orders Virtual Department [address] [place] [address] Petty Marshall PA [address] [place] [address] [email or web address] Encounter for screening mammogram for malignant neoplasm of breast (Primary Dx) Social History Tobacco Use Types Packs/Day Years Used Date Smoking Tobacco: Never Smokeless Tobacco: Never Alcohol Use Standard Drinks/Week Comments Yes 0 (1 standard drink = 0.6 oz pur e alcohol) rare Comments No Sex and Gender Information Value Date Recorded Sex Assigned at Not on file Legal Sex Female 9:53 PM EDT Gender Identity Not on file Sexual Orientation Not on file documented as of this encounter Plan of Treatment Upcoming Encounters Date Type Department Care Team (Late st Contact Info) Description 03/18/2025 Procedure [address] [place] [address] 10/05/2025 8:30 AM EST Appointment [address] [place] [address] BlumePetty PA [address] [place] [address] [email or web address] documented as of this encounter Results * BI MAMMOGRAM SCREENING WITH TOMOSYNTHESIS WITH CAD (BILATERAL) (09/13/2022 3:59 PM EST) Anatomical Region Laterality Modality Breast Left, Breast Right, Breast Bilateral Bila teral Mammography 09/15/2022 2:30 PM EST Impressions 09/15/2022 2:32 PM EST BILATERAL BREASTS: Benign, no specific mammographic evidence of malignancy. Normal interval follow-up is recommended in 12 months. BI-RADS: BI-RADS CATEGORY: 2 - Benign finding. DENSITY: The breast tissue is heterogeneously dense, which could obscure a lesion on mammography. Narrative 09/15/2022 2:32 PM EST STUDY: BI MAMMOGRAM SCREENING WITH TOMOSYNTHESIS WITH CAD (BILATERAL) TECHNIQUE: Bilateral full-field digital screening mammography is obtained and read in conjunction with computer-aided detection. Tomosynthesis as well as 2-D C view imaging were obtained. COMPARISON: Comparison made to multiple prior, most recent January 11, 2021, and most remote April 09, 2013. BREAST COMPOSITION: The breast tissue is heterogeneously dense, which may obscure small masses. RIGHT BREAST: History of previous excisional biopsy. No significant masses, suspicious calcifications or other abnormalities are seen. LEFT BREAST: No significant masses, suspicious calcifications or other abnormalities are seen. Procedure Note Maria Luisa Saldana MD - 09/15/2022 STUDY: BI MAMMOGRAM SCREENING WITH TOMOSYNTHESIS WITH CAD (BILATERAL) TECHNIQUE: Bilateral full-field digital screening mammography is obtainedand read in conjunction with computer-aided detection. Tomosynthesis aswell as 2-D C view imaging were obtained. COMPARISON: Comparison made to multiple prior, most recent January 11, 2021,and most remote April 09, 2013. BREAST COMPOSITION: The breast tissue is heterogeneously dense, which mayobscure small masses. RIGHT BREAST: History of previous excisional biopsy. No significantmasses, suspicious calcifications or other abnormalities are seen. LEFT BREAST: No significant masses, suspicious calcifications or otherabnormalities are seen. IMPRESSION: BILATERAL BREASTS: Benign, no specific mammographic evidence ofmalignancy. Normal interval follow-up is recommended in 12 months. BI-RADS: BI-RADS CATEGORY: 2 - Benign finding. DENSITY: The breast tissue is heterogeneously dense, which could obscurea lesion on mammography. Petty PENALOZA IMG MG EXAMS Final Result documented in this encounter Visit Diagnoses Diagnosis Encounter for screening mammogram for malignant neoplasm of breast- Primary Encounter for screening mammogram for malignant neoplasm of breast documented in this encounter Additional Health Concerns Infection Onset Date Last Indicated Resolved Time CDiff-Risk 05/12/2024 05/16/2024 05/16/2024 11:5 2 AM EDT CoV-Risk 05/12/2024 05/12/2024 05/23/2024 1:22 AM EDT documented as of this encounter Care Teams Key Operator Relationship Specialty Start Date End Date Alaina Colby MD [address] [place] [address] [email or web address] PCP - General Internal Medicine 09/21/17 07/19/25 Simin River PA [address] [place] [address] PCP - General Physician Curator Medical Museum 07/20/25 documented as of this encounter Additional Source Comments The information contained in this document represents components of the legal health record. It is not the complete legal health record.[facility]
--- OUTSIDE RECORDS SUMMARY | 2025-08-04 11:36 | XMS_ITS | Clinical Summary ---
Author Organization [facility] Address [address] [place] [address] Phone Care Team Providers Care Sand Worker Name Role Phone Simin River Primary Care Provider [phone] Allergies No known active allergies Medications hydroCHLOROthiaz shane (HYDRODIURIL) 12.5 MG tablet Take 12.5 mg by mouth daily. Active Family History Medical History Relation Comments Cancer Father Skin cancer Breast cancer Neg Hx Relation Status Comments Father Social History Tobacco Use Types Packs/Day Years [...] on file Sexual Orientation Not on file Last Filed Vital Signs Vital Sign Reading Time Taken Comments Blood Pressure 164/81 05/05/2021 2:06 PM EDT Pulse 73 05/05/2021 2:06 PM EDT Temperature 36.4 C (97.6 F) 05/05/2021 2:06 PM EDT Respiratory Rate 16 05/05/2021 2:06 PM EDT Oxygen Saturation 96% 05/05/2021 2:06 PM EDT Inhaled Oxygen Concentration - - Weight 61.2 kg (135 lb) 05/12/2024 9:52 AM EDT Height 170.2 cm (5' 7 ) 05/12/2024 9:52 AM EDT Body Mass Index 21.14 05/12/2024 9:52 AM EDT Plan of Treatment Upcoming Encounters Date Type Department Care Team (Late st Contact Info) Description 03/18/2025 Procedure Pass [address] [place] [address] 10/05/2025 8:30 AM EST Appointment [address] [place] [address] Petty Marshall PA [address] [place] [address] [email or web address] Maintenance Due Date Last Done Comments Adult Td,Tdap Booster 1956 BLOOD PRESSURE 1956 DEPRESSION SCREENING 1968 SMOKING Hx and SMOKELESS TOBACCO SCREENING 1969 HEPATITIS C SCREENING 1974 COLOGUARD 2001 COLONOSCOPY 2001 COLORECTAL CANCER SCREENING 2001 FIT TEST 2001 FOBT 2001 SIGMOIDOSCOPY 2001 VIRTUAL COLONOSCOPY 2001 PNEUMOCOCCAL VACCINES (50+ years) (1 of 1 - PCV) 2006 ZOSTER VACCINES (1 of 2) 2006 OSTEOPOROSIS SCREENING INITIAL (ONE-TIME) 2021 INFLUENZA VACCINE (#1) 2025 COVID-19 VACCINE (2 - 2024- season) 2025 01/12/2021 MAMMOGRAM 11/13/2025 11/13/2023, 11/2 12/2021, 01/11/2021, Additional history exists POTASSIUM LEVEL 04/25/2026 04/25/2025, 04/22, 10/17/2023, Additional history exists LIPID PANEL 04/25/2030 04/25/2025, 09/22, 01/11/2021, Additional history exists RSV VACCINE (1 - 1-dose 75+ series) 2031 HEPATITIS A VACCINES Aged Out No long er eligible based on patient's age to complete this topic HIB VACCINES Aged Out No longer eligi ble based on patient's age to complete this topic MENINGOCOCCAL VACCINES (ACWY) Aged Out No longer eligible based on patient's age to complete this topic MENINGOCOCCAL VACCINES (B) Aged Out N o longer eligible based on patient's age to complete this topic Medical Devices Not on file Procedures Procedure Name Priority Date/Time Associated Diagnosis Comments LIPID PANEL Routine 04/25/2025 10:10 AM EDT Hypertension, unspecified type Hyperlipidemia, unspecified hyperlipidemia type Urinary tract infection without hematuria, site unspecified COMPREHENSIVE METABOLIC PANEL Routine 04/25/2025 10:10 AM EDT Hypertension, unspecified type Hyperlipidemia, unspecified hyperlipidemia type Urinary tract infection without hematuria, site unspecified BI MAMMOGRAM SCREENING WITH TOMOSYNTHESIS WITH CAD (BILATERAL) Routine 11/13/2023 3:35 PM EST Breast screening from Last 3 Months or Most Recently Relevant to Health Maintenance Results * (ABNORMAL) Comprehensive metabolic panel (04/25/2025 10:10 AM EDT) SODIUM 140 133 - 146 mmol/L [facility] POTASSIUM 4.0 3.3 - 5.1 mmol/L [facility] CHLORIDE 101 96 - 108 mmol/L [facility] CO2 27 21 - 35 mmol/L [facility] BUN 22(H) 6 - 19 mg/dL [facility] CREATININE 0.80 0.5 - 1.5 mg/dL [facility] GLUCOSE 84 70 - 99 mg/dL [facility] ALBUMIN 4.5 3.9 - 4.8 g/dL [facility] TOTAL PROTEIN 7.3 6.5 - 8.0 g/dL [facility] CALCIUM 9.6 8.4 - 10.3 mg/dL [facility] ALKALINE PHOSPHATASE 84 39 - 117 U/L [facility] TOTAL BILIRUBIN 0.9 0.0 - 1.2 mg/dL [facility] AST 25 0 - 37 U/L [facility] ALT 15 0 - 40 U/L [facility] GLOBULIN 2.8 1 - 4.8 g/dL [facility] EGFR 80 >59 mL/min/1.7 3m2 [facility] Comment:Estimated glomerular filtration rate calculated using the CKD-EPI refit equation. ANION GAP 16 10 - 20 mmol/L [facility] Blood 04/25/2025 10:1 0 AM EDT 04/25/2025 10:13 AM EDT Petty PENALOZA LAB BLOOD ORDERABLES Final Resu lt [address] [address] * (ABNORMAL) Lipid panel (04/25/2025 10:10 AM EDT) HDL 161 mg/dL [facility] Comment: Interpretation <40 mg/dL: Low HDL cholesterol (major risk factor for CHD) Greater than or equal to 60 mg/dL: High HDL cholesterol ( negative risk factor for CHD) HDL - cholesterol is affected by a number of factors, e.g. smoking, excerise, hormones, sex and age. CHOLESTEROL 305(H) 0 - 240 mg/dL [facility] TRIGLYCERIDES 62 30 - 160 mg/dL [facility] LDL 132(H) 50 - 129 mg/dL [facility] Comment: LDL levels in terms of risk for coronary heart disease: <100 mg/dL: Optimal 100-129 mg/dL: Near or above optimal 130-159 mg/dL: Borderline high 160-189 mg/dL: High >190 mg/dL: Very High CARDIAC RISK RATIO 1.9(L) 3.3 - 4.4 [facility] Blood 04/25/2025 10:1 0 AM EDT 04/25/2025 10:13 AM EDT us Petty PENALOZA LAB BLOOD ORDERABLES Final Resu lt [facility] [address] [place] [address] * (ABNORMAL) BI MAMMOGRAM SCREENING WITH TOMOSYNTHESIS WITH CAD (BILATERAL) (11/13/2023 3:35 PM EST) Anatomical Region Laterality Modality Breast Left, Breast Right, Breast Bilateral Bila teral Mammography 11/16/2023 5:29 PM EST Impressions 11/19/2023 9:08 AM EST Recommend additional imaging for possible new 1 cm mass in the posterior outer right breast. No other findings suspicious for malignancy. [facility] [...] findings suspicious for malignancy. [facility] the patient [...] rightbreast, right breast ultrasound. Alaina Colby MD IM MG EXAMS Final Resul t from Last 3 Months or Most Recently Relevant to Health Maintenance Insurance MEDICARE PART A & B [place]UE [place] MEDICARE PART A & B [facility] MEDICARE PPO BLUE REPLACEMENT MEDICARE PART A & B [facility] MEDICARE PPO BLUE REPLACEMENT MEDICARE PART A & B [place] [place] RE[place]AC[place] MEDICARE PART A & B [facility] MEDICARE PPO BLUE REPLACEMENT MEDICARE PART A & B [facility] MEDICARE PPO BLUE REPLACEMENT Care Teams Sand Worker Relationship Specialty Start Date End Date Simin River PA [address] [place] [address] PCP - General Physician Fire Dispatcher 07/20/25 Additional Source Comments The information contained in this document represents components of the legal health record. It is not the complete legal health record.[facility]
--- OUTSIDE RECORDS SUMMARY | 2025-08-04 11:36 | XMS_ITS | Encounter Summary ---
Author Organization [facility] Address [address] [place] [address] Phone Care Team Providers Care Infant Lead Teacher Name Role Phone Alaina Colby MD Primary Care Provider Simin River Primary Care Provider [phone] Encounter Details Date Type Department Care Team (Latest Contact Info) Description 09/23/2024 Transcribe Orders Virtual Department [address] [place] [address] Petty Marshall PA [address] [place] [address] [email or web address] Postmenopausal (Primary Dx) Social History Tobacco Use Types [...] st Contact Info) Description 03/18/2025 Procedure Pass [address] [place], [place] [address] 10/05/2025 8:30 AM EST Appointment [address] [place] [address] Petty Marshall PA [address] [place] [address] [email or web address] t Scheduled Orders Name Type Priority Associated Diagnoses Orde r Schedule DXA Screening Imaging Routine Postmenopausal Expected: 10/23/2024, Expires: 09/23/2025 documented as of this encounter Visit Diagnoses Diagnosis Postmenopausal- Primary Asymptomatic postmenopausal status (age-related) (natural) documented in this encounter Care Teams Infant Lead Teacher Relationship Specialty Start Date End Date Alaina Colby MD [address] [place] [address] PCP - General Internal Medicine 09/21/17 07/19/25 Simin River PA [address] [place] [address] PCP - General Physician Staff Home Therapy Rn 07/20/25 documented as of this encounter Additional Source Comments The information contained in this document represents components of the legal health record. It is not the complete legal health record.[facility]
--- OUTSIDE RECORDS SUMMARY | 2025-08-04 11:36 | XMS_ITS | Encounter Summary ---
Author Organization [facility] Address [address] [place] [address] Phone Care Team Providers Care Glaze Sprayer Name Role Phone Alaina Colby MD Primary Care Provider Simin River Primary Care Provider [phone] Encounter Details Date Type Department Care Team (Late st Contact Info) Description 09/04/2022 Procedure Pass [address] [address] Social History Tobacco Use Types Packs/Day Years [...] st Contact Info) Description 03/18/2025 Procedure Pass [address] [place] [address] 10/05/2025 8:30 AM EST Appointment [address] [place] [address] Petty Marshall PA [address] [place] [address] [email or web address] documented as of this encounter Visit Diagnoses Not on filedocumented in this encounter Additional Health Concerns Infection Onset Date Last Indicated Resolved Time CDiff-Risk 05/12/2024 05/16/2024 05/16/2024 11:5 2 AM EDT CoV-Risk 05/12/2024 05/12/2024 05/23/2024 1:22 AM EDT documented as of this encounter Care Teams Glaze Sprayer Relationship Specialty Start Date End Date Alaina Colby MD [address] [place] [address] [email or web address] PCP - General Internal Medicine 09/21/17 07/19/25 Simin River PA [address] [place] [address] PCP - General Physician Clinical Services Professional 07/20/25 documented as of this encounter Additional Source Comments The information contained in this document represents components of the legal health record. It is not the complete legal health record.[facility]
--- OUTSIDE RECORDS SUMMARY | 2025-08-04 11:37 | XMS_ITS | Patient Health Record ---
Author Organization [facility] Address [address] [place] [address] Care Team Providers Care Crew Chief Name Role Phone SLIME LAO PA-C Primary Care Provider David Zaidi Jr Unavailable [phone] Allergies Allergen (clinical drug ingredient) Drug/Non Drug Allergy documented on EMR Reaction Allergy Type Onset Date Status mold,metals (uncoded) Unknown Allergy Active Reason For Referral No Information Medications Medication SIG (Take, Route, Frequency, Duration) Notes Start Date End Date Status hydroCHLOROthiazide 12.5 MG 1 tablet in the morning Orally Once a day; Duration: 30 day(s) Active Jessica Allergy 60 MG 1 tablet as needed Orally Once a day Active MiraLax (colon prep) 17 GM/SCOOP mixed with Gatorade or Crystal Light Orally begin at 5:00 p.m. the day before the procedure; Duration: 1 day 09/08/2024 Active Immunizations Vaccine Route Administration Date Status Comme nts Influenza Unknown 08/15/2018 Administered Influenza Unknown 08/26/2024 Administered Social History Tobacco Use: Social History Observation Description Date Details (start date - stop date) Never Smoker NA - NA Tobacco Use/Smoking Question Answer Notes Patient is [...] Never (0 point) Points 1 Interpretation Negative Problems Problem Type SNOMED Code ICD Code Onset Dates Problem Status W/U Status Risk Notes Problem Colon cancer screening (227084224) Colon cancer screening (Z12.11) Active confirmed Problem Pre-procedure evaluation check (650602672) Encounter for other preprocedural examination (Z01.818) Active confirmed Problem Long-term current use of drug therapy (907628581) exterminator helper current use of diuretic (Z79.899) Active confirmed Vital Signs Temperature 97.7 degrees Fahrenheit 09/08/2024 Blood pressure diastolic 00 mm Hg 09/08/2024 Height 67 in 09/08/2024 Blood pressure systolic 000 mm Hg 09/08/2024 Weight 140 lb 6 oz lbs 09/08/2024 BMI 21.98 kg/m2 09/08/2024 Encounters Encounter Location Date Provider Diagnosis [facility] [address] [place], [place] [id number] 09/30/2024 David Finnegan Jr Colon cancer screening Z12.11 and Personal history of colonic polyps Z86.0100 [facility] [address] [facility] [address] [place] [address] 09/08/2024 David Finnegan Jr Colon cancer screening Z12.11 ; Encounter for other preprocedural examination Z01.818 and senior care current use of diuretic Z79.899 Assessments Encounter Date Diagnosis (ICD Code) Assessment Notes Treatment Notes Treatment Clinical Notes Section Notes 09/30/2024 Colon cancer screening (ICD-10 - Z12.11) 09/30/2024 Personal history of colonic polyps (ICD-10 - Z86.0100) 09/08/2024 Colon cancer screening (ICD-10 - Z12.11) Colonoscopy material was printed We discussed colonoscopy today. We discussed risks and benefits of the procedure today. She understands these and agrees to proceed. She is advised to stop taking hydrochlorothiazide the day before the procedure. 09/08/2024 Encounter for other preprocedural examination (ICD-10 - Z01.818) We discussed colonoscopy today. We discussed risks and benefits of the procedure today. She understands these and agrees to proceed. She is advised to stop taking hydrochlorothiazide the day before the procedure. 09/08/2024 exterminator helper current use of diuretic (ICD-10 - Z79.899) We discussed colonoscopy today. We discussed risks and benefits of the procedure today. She understands these and agrees to proceed. She is advised to stop taking hydrochlorothiazide the day before the procedure. Plan Of Treatment Future Test Test Name Order Date COLONOSCOPY 07/16/2019 COLONOSCOPY 09/08/2024 Insurance Providers Payer Name Payer Address Payer Phone Subscriber Number Group Number Insured Name Patient Relationship to Insured Coverage Start Date Coverage End Date [facility] [address] [place] [address] [phone] [id number] DEJA [place] Self - patient is the insured Medical (General) History Medical History History ICD Code Environmental allergies Hypertension Colonoscopy 08/09, tubular adenoma, five -year followup Surgical History Surgery Date(Month/Year) lumpectomy, right breast appendectomy
--- OUTSIDE RECORDS SUMMARY | 2025-08-04 11:37 | XMS_ITS | Encounter Summary ---
Author Organization [facility] Address [address] [place] [address] Phone Care Team Providers Care Highway Truck Driver Name Role Phone Alaina Colby MD Primary Care Provider [phone] Simin River Primary Care Provider [phone] Reason for Referral * MRI/CAT Scan - Closed Specialty Diagnoses / Procedures Referred By Contac t Referred To Contact Radiology Diagnoses Numbness Lumbosacral radiculopathy at L5 Procedures MRI Lumbar Spine CHG MRI, LUMBAR SPINE COMBO CHG MRI, LUMBAR SPINE CONTRAST Keith Nassar MD [address] [place] [address], [address] [place] [address] Phone: tel: fax: mailto:[email or web address] Referral ID Status Reason Start Date Expiration Date Visits Re quested Visits Authorized [id number] Closed 04/11/2024 06/08/2024 1 1 Encounter Details Date Type Department Care Team (Latest Contact Info) Description 04/11/2024 Transcribe Orders Virtual Department [address] [place] [address] Keith Nassar MD [address] [place] [address], [address] [place], [place] [id number] [email or web address] Numbness (Primary Dx); Lumbosacral radiculopathy at L5 Social History Tobacco Use Types Packs/Day Years [...] st Contact Info) Description 03/18/2025 Procedure Pass [address] [place] [address] 10/05/2025 8:30 AM EST Appointment [address] [place] [address] Petty Marshall PA [address] [place] [address] [email or web address] documented as of this encounter Results * MRI LUMBAR SPINE (NEURO) WITHOUT CONTRAST (05/15/2024 6:51 PM EDT) Anatomical Region Laterality Modality L-spine Magnetic Resonan ce 05/19/2024 9:16 PM EDT Impressions 05/19/2024 9:21 PM EDT Mild bilateral foraminal stenosis at L4-L5, otherwise, no significant spinal or foraminal stenosis. Narrative 05/19/2024 9:21 PM EDT MRI LUMBAR SPINE (NEURO) WITHOUT CONTRAST Referring clinician's provided indication for this examination in [facility]: Outside Radiology Order; numbness TECHNIQUE: MRI LUMBAR SPINE (NEURO) WITHOUT CONTRAST Multi-sequence, multi-planar MRI of the lumbar spine was performed without intravenous contrast. COMPARISON: None FINDINGS: LUMBAR SPINE: Alignment and Vertebrae: Mild scoliosis of lumbar spine with convexity towards LEFT, centered at L4. Vertebral body height is maintained. Marrow: Mild endplate centered degenerative changes at L4-L5. Discs and Endplates: Mild multilevel loss of disc height with disc desiccation. Conus: Terminates at T12-L1. Soft Tissues: No prevertebral edema. Other Findings: Multiple small perineural cysts on the LEFT side and T11-T12 and over the sacral segments. Findings by level: T12-L1: No spinal or foraminal stenosis. L1-L2: No spinal or foraminal stenosis. L2-L3: Mild disc bulge and mild facet arthropathy and no significant spinal foraminal stenosis. L3-L4: Mild disc bulge with mild facet arthropathy with no significant spinal foraminal stenosis. L4-L5: Mild disc bulge with mild facet arthropathy contributing to mild bilateral foraminal stenosis. L5-S1: Mild disc bulge with no significant spinal foraminal stenosis. Procedure Note Viktor Lisa MD, PhD - 05/19/2024 MRI LUMBAR SPINE (NEURO) WITHOUT CONTRAST Referring clinician's provided indication for this examination in [facility]:Outside Radiology Order; numbness TECHNIQUE: MRI LUMBAR SPINE (NEURO) WITHOUT CONTRAST Multi-sequence, multi-planar MRI of the lumbar spine was performed withoutintravenous contrast. COMPARISON: None FINDINGS: LUMBAR SPINE: Alignment and Vertebrae: Mild scoliosis of lumbar spine with convexitytowards LEFT, centered at L4. Vertebral body height is maintained. Marrow: Mild endplate centered degenerative changes at L4-L5. Discs and Endplates: Mild multilevel loss of disc height with discdesiccation. Conus: Terminates at T12-L1. Soft Tissues: No prevertebral edema. Other Findings: Multiple small perineural cysts on the LEFT side [id number] and over the sacral segments. Findings by level: T12-L1: No spinal or foraminal stenosis. L1-L2: No spinal or foraminal stenosis. L2-L3: Mild disc bulge and mild facet arthropathy and no significantspinal foraminal stenosis. L3-L4: Mild disc bulge with mild facet arthropathy with no significantspinal foraminal stenosis. L4-L5: Mild disc bulge with mild facet arthropathy contributing to mildbilateral foraminal stenosis. L5-S1: Mild disc bulge with no significant spinal foraminal stenosis. IMPRESSION: Mild bilateral foraminal stenosis at L4-L5, otherwise, no significantspinal or foraminal stenosis. Keith Nassar MD IMG MR XSPECIALTY Final Resu lt documented in this encounter Visit Diagnoses Diagnosis Numbness- Primary Disturbance of skin sensation Lumbosacral radiculopathy at L5 Numbness Disturbance of skin sensation Lumbosacral radiculopathy at L5 documented in this encounter Additional Health Concerns Infection Onset Date Last Indicated Resolved Time CDiff-Risk 05/12/2024 05/16/2024 05/16/2024 11:5 2 AM EDT CoV-Risk 05/12/2024 05/12/2024 05/23/2024 1:22 AM EDT documented as of this encounter Care Teams Highway Truck Driver Relationship Specialty Start Date End Date Alaina Colby MD [address] [place] [address] PCP - General Internal Medicine 09/21/17 07/19/25 Simin River PA [address] [place] [address] PCP - General Physician Planisher 07/20/25 documented as of this encounter Additional Source Comments The information contained in this document represents components of the legal health record. It is not the complete legal health record.[facility]
--- OUTSIDE RECORDS SUMMARY | 2025-08-04 11:37 | XMS_ITS | Encounter Summary ---
Author Organization [facility] Address [address] [place] [address] Phone Care Team Providers Care Pet Walker Name Role Phone Alaina Colby MD Primary Care Provider Simin River Primary Care Provider [phone] Encounter Details Date Type Department Care Team (Late st Contact Info) Description 04/11/2024 Procedure Pass [facility], [address] [address] Social History Tobacco Use Types Packs/Day Years [...] st Contact Info) Description 03/18/2025 Procedure Pass [address] [place] [address] 10/05/2025 8:30 AM EST Appointment [address] [place] [address] Petty Marshall PA [address] [place] [address] [email or web address] documented as of this encounter Visit Diagnoses Not on filedocumented in this encounter Additional Health Concerns Infection Onset Date Last Indicated Resolved Time CDiff-Risk 05/12/2024 05/16/2024 05/16/2024 11:5 2 AM EDT CoV-Risk 05/12/2024 05/12/2024 05/23/2024 1:22 AM EDT documented as of this encounter Care Teams Pet Walker Relationship Specialty Start Date End Date Alaina Colby MD [address] [place] [address] [email or web address] PCP - General Internal Medicine 09/21/17 07/19/25 Simin River PA [address] [place] [address] PCP - General Physician Scale Clerk 07/20/25 documented as of this encounter Additional Source Comments The information contained in this document represents components of the legal health record. It is not the complete legal health record.[facility]
--- OUTSIDE RECORDS SUMMARY | 2025-08-04 11:37 | XMS_ITS | Encounter Summary ---
Author Organization [facility] Address [address] [place] [address] Phone Care Team Providers Care Pool Finisher Name Role Phone Alaina Colby MD Primary Care Provider [phone] Alaina Colby MD Unavailable [phone] Simin River Primary Care Provider [phone] Encounter Details Date Type Department Care Team (Late st Contact Info) Description 10/08/2018 Ancillary Orders Virtual Department [address] [place] [address] Petty Marshall PA [address] [place] [address] [email or web address] Social History Tobacco Use Types Packs/Day Years [...] st Contact Info) Description 03/18/2025 Procedure Pass [address] [place] [address] 10/05/2025 8:30 AM EST Appointment [address] [place] [address] Petty Marshall PA [address] [place] [address] [email or web address] documented as of this encounter Results * BI MAMMOGRAM SCREENING WITH TOMOSYNTHESIS WITH CAD (BILATERAL) (11/22/2018 7:48 AM EST) Anatomical Region Laterality Modality Breast Left, Breast Right, Breast Bilateral Bila teral Mammography 11/22/2018 9:04 AM EST Impressions 11/22/2018 9:06 AM EST No mammographic change indicative of malignancy. Routine screening is recommended. BI-RADS CATEGORY: 2 - Benign finding. DENSITY: There are scattered fibroglandular densities. POS -CDHMAMA Narrative 11/22/2018 9:06 AM EST Bilateral full-field digital screening mammography is obtained and read in conjunction with computer-aided detection. Tomosynthesis as well as 2-D C view imaging of both breasts in two planes also obtained. Comparison made to multiple prior, most recent March, and most remote 04/09/2013. No dominant mass, architectural distortion, worrisome asymmetry, or suspicious calcification is identified. No skin or nipple finding of concern is appreciated. Scattered calcifications are stable. Procedure Note Armando Dukes MD - 11/22/2018 Bilateral full-field digital screening mammography is obtained and read inconjunction with computer-aided detection. Tomosynthesis as well as 2-D Cview imaging of both breasts in two planes also obtained. Comparison madeto multiple prior, most recent March, and most remote 04/09/2013. No dominant mass, architectural distortion, worrisome asymmetry, orsuspicious calcification is identified. No skin or nipple finding ofconcern is appreciated. Scattered calcifications are stable. IMPRESSION: No mammographic change indicative of malignancy. Routine screening isrecommended. BI-RADS CATEGORY: 2 - Benign finding. DENSITY: There are scattered fibroglandular densities. POS -CDHMAMA Petty PENALOZA IMG MG EXAMS Final Result documented in this encounter Visit Diagnoses Diagnosis Visit for screening mammogram Visit for screening mammogram documented in this encounter Additional Health Concerns Infection Onset Date Last Indicated Resolved Time CDiff-Risk 05/12/2024 05/16/2024 05/16/2024 11:5 2 AM EDT CoV-Risk 05/12/2024 05/12/2024 05/23/2024 1:22 AM EDT documented as of this encounter Care Teams Pool Finisher Relationship Specialty Start Date End Date Alaina Colby MD [address] [place] [address] [email or web address] PCP - General Internal Medicine 09/21/17 07/19/25 Simin River PA [address] [place] [address] PCP - General Physician Adding Machine Servicer 07/20/25 Alaina Colby MD [address] [place] [address] [email or web address] Insurance Assigned Provider 01/29/21 02/25/22 documented as of this encounter Additional Source Comments The information contained in this document represents components of the legal health record. It is not the complete legal health record.[facility]
--- OUTSIDE RECORDS SUMMARY | 2025-08-04 11:37 | XMS_ITS | Encounter Summary ---
Author Organization [facility] Address [address] [place] [address] Phone Care Team Providers Care Fruit Buying Grader Name Role Phone Alaina Colby MD Primary Care Provider Alaina Colby MD Unavailable [phone] Simin River Primary Care Provider [phone] Encounter Details Date Type Department Care Team (Late st Contact Info) Description 11/06/2019 Ancillary Orders Virtual Department [address] [place] [address] Petty Marshall PA [address] [place] [address] [email or web address] Breast screening Social History Tobacco Use Types Packs/Day Years Used Date Smoking Tobacco: Never Assessed Comments No Sex and Gender Information Value Date Recorded Sex Assigned at Not on file Legal Sex Female 9:53 PM EDT Gender Identity Not on file Sexual Orientation Not on file documented as of this encounter Plan of Treatment Upcoming Encounters Date Type Department Care Team (Late st Contact Info) Description 03/18/2025 Procedure Pass [address] [place] [address] 10/05/2025 8:30 AM EST Appointment [address] [place] [address] Petty Marshall PA [address] [place] [address] [email or web address] documented as of this encounter Results * BI MAMMOGRAM SCREENING WITH TOMOSYNTHESIS WITH CAD (BILATERAL) (12/26/2019 7:41 AM EST) Anatomical Region Laterality Modality Breast Left, Breast Right, Breast Bilateral Bila teral Mammography 12/26/2019 1:28 PM EST Impressions 12/26/2019 1:34 PM EST No mammographic signs of malignancy. Annual screening is recommended. BI-RADS CATEGORY: 2 - Benign finding. DENSITY: The breast tissue is heterogeneously dense, an appearance which lowers the sensitivity of mammography. POS - [id number] Narrative 12/26/2019 1:34 PM EST Bilateral mammography is performed in conjunction with computed aided detection. 3-D tomography along with 2-D C view imaging was also performed. Comparison made to previous dated as far back as 04/09/2013 and as recent as 11/22/2018. No suspicious masses, areas of architectural distortion or suspicious microcalcifications. Stable scattered bilateral microcalcifications and larger coarse calcifications with benign characteristics. Procedure Note Aniket Lees MD - 12/26/2019 Bilateral mammography is performed in conjunction with computed aideddetection. 3-D tomography along with 2-D C view imaging was alsoperformed. Comparison made to previous dated as far back as 04/09/2013 andas recent as 11/22/2018. No suspicious masses, areas of architectural distortion or suspiciousmicrocalcifications. Stable scattered bilateral microcalcifications andlarger coarse calcifications with benign characteristics. IMPRESSION: No mammographic signs of malignancy. Annual screening is recommended. BI-RADS CATEGORY: 2 - Benign finding. DENSITY: The breast tissue is heterogeneously dense, an appearance whichlowers the sensitivity of mammography. POS - [id number] Petty PENALOZA IMG MG EXAMS Final Result documented in this encounter Visit Diagnoses Diagnosis Breast screening Breast screening, unspecified Breast screening Breast screening, unspecified documented in this encounter Additional Health Concerns Infection Onset Date Last Indicated Resolved Time CDiff-Risk 05/12/2024 05/16/2024 05/16/2024 11:5 2 AM EDT CoV-Risk 05/12/2024 05/12/2024 05/23/2024 1:22 AM EDT documented as of this encounter Care Teams Fruit Buying Grader Relationship Specialty Start Date End Date Alaina Colby MD [address] [place] [address] [email or web address] PCP - General Internal Medicine 09/21/17 07/19/25 Simin River PA [address] [place] [address] PCP - General Physician Job Placement Officer 07/20/25 Alaina Colby MD [address] [place] [address] [email or web address] Insurance Assigned Provider 01/29/21 02/25/22 documented as of this encounter Additional Source Comments The information contained in this document represents components of the legal health record. It is not the complete legal health record.[facility]
--- OUTSIDE RECORDS SUMMARY | 2025-08-04 11:37 | XMS_ITS | Encounter Summary ---
Author Organization [facility] Address [address] [place] [address] Phone Care Team Providers Care Training Specialist Name Role Phone Alaina Colby MD Primary Care Provider [phone] Simin River Primary Care Provider [phone] Encounter Details Date Type Department Care Team (Latest Contact Info) Description 03/18/2025 Transcribe Orders Virtual Department [address] [place] [address] Petty Marshall PA [address] [place] [address] [email or web address] Breast screening (Primary Dx) Social History Tobacco [...] st Contact Info) Description 03/18/2025 Procedure Pass [address] [place] [address] 10/05/2025 8:30 AM EST Appointment [address] [place] [address] Petty Marshall PA [address] [place] [address] [email or web address] Scheduled Orders Name Type Priority Associated Diagnoses Orde r Schedule Mammogram Screening (Bilateral) Imaging Routine Breast screening Expected: 04/18/2025, Expires: 03/18/2026 documented as of this encounter Visit Diagnoses Diagnosis Breast screening- Primary Breast screening, unspecified documented in this encounter Care Teams Training Specialist Relationship Specialty Start Date End Date Alaina Colby MD [address] [place] [address] PCP - General Internal Medicine 09/21/17 07/19/25 Simin River PA [address] [place] [address] PCP - General Physician Scientific Research Associate 07/20/25 documented as of this encounter Additional Source Comments The information contained in this document represents components of the legal health record. It is not the complete legal health record.[facility]
--- OUTSIDE RECORDS SUMMARY | 2025-08-04 11:37 | XMS_ITS | Encounter Summary ---
Author Organization [facility] Address [address] [place] [address] Phone Care Team Providers Care Manager Truck Name Role Phone Alaina Colby MD Primary Care Provider Simin River Primary Care Provider [phone] Encounter Details Date Type Department Care Team (Late st Contact Info) Description 11/19/2023 Ancillary Orders [facility], [address] [address] Alaina Colby MD [address] [place] [address] [email or web address] Abnormal finding on mammography (Primary Dx) Social History Tobacco Use Types [...] Contact Info) Description 03/18/2025 Procedure Pass [address] [place] [address] 10/05/2025 8:30 AM EST Appointment [address] [place] [address] Petty Marshall PA [address] [place] [address] [email or web address] documented as of this encounter Results * BI US BREAST LIMITED (RIGHT) (12/27/2023 1:39 PM EST) Anatomical Region Laterality Modality Breast Right, Breast Bilateral Right U ltrasound 12/27/2023 12:5 5 PM EST Impressions 12/27/2023 3:24 PM EST Benign findings on the right. No mammographic evidence of malignancy in the right breast. BI-RADS 2 BENIGN Results and recommendations were communicated to the patient at time of examination. Narrative 12/27/2023 3:24 PM EST BI MAMMOGRAM DIAGNOSTIC WITH TOMOSYNTHESIS WITH CAD (RIGHT), BI US BREAST LIMITED (RIGHT) Additional patient information: Asymmetry on recent screening mammogram. COMPARISON: Comparison is made with relevant prior imaging. Breast composition: The breast tissue is heterogeneously dense which may obscure small masses. FINDINGS: Right Mammogram: The asymmetry seen on screening mammography in the right breast near completely effaces, consistent with superimposition of normal breast tissue, the breast tissue in this location appears stable compared with prior studies. There is no underlying mass, architectural distortion, suspicious calcifications or other concerning findings. Right Ultrasound: Targeted ultrasound was performed in the area of suspected asymmetry, 9:00 position, 7 cm from the nipple. There is no sonographic finding present. us Alaina Colby MD IMG US BREAST Final Resul t * BI MAMMOGRAM DIAGNOSTIC WITH TOMOSYNTHESIS WITH CAD (RIGHT) (12/27/2023 12:45 PM EST) Anatomical Region Laterality Modality Breast Right, Breast Bilateral Right M ammography 12/27/2023 12:5 5 PM EST Impressions 12/27/2023 3:24 PM EST Benign findings on the right. No mammographic evidence of malignancy in the right breast. BI-RADS 2 BENIGN Results and recommendations were communicated to the patient at time of examination. Narrative 12/27/2023 3:24 PM EST BI MAMMOGRAM DIAGNOSTIC WITH TOMOSYNTHESIS WITH CAD (RIGHT), BI US BREAST LIMITED (RIGHT) Additional patient information: Asymmetry on recent screening mammogram. COMPARISON: Comparison is made with relevant prior imaging. Breast composition: The breast tissue is heterogeneously dense which may obscure small masses. FINDINGS: Right Mammogram: The asymmetry seen on screening mammography in the right breast near completely effaces, consistent with superimposition of normal breast tissue, the breast tissue in this location appears stable compared with prior studies. There is no underlying mass, architectural distortion, suspicious calcifications or other concerning findings. Right Ultrasound: Targeted ultrasound was performed in the area of suspected asymmetry, 9:00 position, 7 cm from the nipple. There is no sonographic finding present. us Alaina Colby MD IMG MG EXAMS Final Resul t documented in this encounter Visit Diagnoses Diagnosis Abnormal finding on mammography- Primary Abnormal finding on mammography Abnormal finding on mammography documented in this encounter Additional Health Concerns Infection Onset Date Last Indicated Resolved Time CDiff-Risk 05/12/2024 05/16/2024 05/16/2024 11:5 2 AM EDT CoV-Risk 05/12/2024 05/12/2024 05/23/2024 1:22 AM EDT documented as of this encounter Care Teams Manager Truck Relationship Specialty Start Date End Date Alaina Colby MD [address] [place] [address] PCP - General Internal Medicine 09/21/17 07/19/25 Simin River PA [address] [place] [address] PCP - General Physician Supervisor Feed Mill 07/20/25 documented as of this encounter Additional Source Comments The information contained in this document represents components of the legal health record. It is not the complete legal health record.[facility]
--- OUTSIDE RECORDS SUMMARY | 2025-08-04 11:37 | XMS_ITS | Encounter Summary ---
Author Organization [facility] Address [address] [place] [address] Phone Care Team Providers Care Web Sizer Name Role Phone Alaina Colby MD Primary Care Provider Alaina Colby MD Unavailable [phone] Simin River Primary Care Provider [phone] Encounter Details Date Type Department Care Team (Late st Contact Info) Description 12/30/2020 Procedure Pass [address] [address] Social History Tobacco Use Types Packs/Day Years [...] Contact Info) Description 03/18/2025 Procedure Pass [address] [place] [address] 10/05/2025 8:30 AM EST Appointment [address] [place] [address] Petty Marshall PA [address] [place] [address] [email or web address] documented as of this encounter Visit Diagnoses Not on filedocumented in this encounter Additional Health Concerns Infection Onset Date Last Indicated Resolved Time CDiff-Risk 05/12/2024 05/16/2024 05/16/2024 11:5 2 AM EDT CoV-Risk 05/12/2024 05/12/2024 05/23/2024 1:22 AM EDT documented as of this encounter Care Teams Web Sizer Relationship Specialty Start Date End Date Alaina Colby MD [address] [place] [address] [email or web address] PCP - General Internal Medicine 09/21/17 07/19/25 Simin River PA [address] [place] [address] PCP - General Physician Risk Tech 07/20/25 Alaina Colby MD [address] [place] [address] [email or web address] Insurance Assigned Provider 01/29/21 02/25/22 documented as of this encounter Additional Source Comments The information contained in this document represents components of the legal health record. It is not the complete legal health record.[facility]
--- OUTSIDE RECORDS SUMMARY | 2025-08-04 11:37 | XMS_ITS | Encounter Summary ---
Author Organization [facility] Address [address] [place] [address] Phone Care Team Providers Care Operations Manager Name Role Phone Alaina Colby MD Primary Care Provider [phone] Simin River Primary Care Provider [phone] Encounter Details Date Type Department Care Team (Late st Contact Info) Description 08/31/2023 Procedure Pass [address] [place] [address] [address] Social History Tobacco Use Types Packs/Day Years [...] st Contact Info) Description 03/18/2025 Procedure Pass [address] [place] [address] 10/05/2025 8:30 AM EST Appointment [address] [place] [address] [place] [address] Petty Marshall PA [address] [place] [address] [email or web address] documented as of this encounter Visit Diagnoses Not on filedocumented in this encounter Additional Health Concerns Infection Onset Date Last Indicated Resolved Time CDiff-Risk 05/12/2024 05/16/2024 05/16/2024 11:5 2 AM EDT CoV-Risk 05/12/2024 05/12/2024 05/23/2024 1:22 AM EDT documented as of this encounter Care Teams Operations Manager Relationship Specialty Start Date End Date Alaina Colby MD [address] [place] [address] [email or web address] PCP - General Internal Medicine 09/21/17 07/19/25 Simin River PA [address] [place] [address] PCP - General Physician Want Ad Receiver 07/20/25 documented as of this encounter Additional Source Comments The information contained in this document represents components of the legal health record. It is not the complete legal health record.[facility]
--- OUTSIDE RECORDS SUMMARY | 2025-08-04 11:37 | XMS_ITS | Encounter Summary ---
Author Organization [facility] Address [address] [place] [address] Phone Care Team Providers Care Steam Room Attendant Name Role Phone Alaina Colby MD Primary Care Provider Alaina Colby MD Unavailable [phone] Simin River Primary Care Provider [phone] Encounter Details Date Type Department Care Team (Latest Contact Info) Description 04/29/2019 Transcribe Orders [facility] [address] [place] [address] Petty Marshall PA [address] [place] [address] [email or web address] Routine general medical examination at a health care facility (Primary Dx); Hypertension, unspecified type; Weight loss; Paresthesia Social History Tobacco Use Types Packs/Day Years [...] st Contact Info) Description 03/18/2025 Procedure Pass [address] [place] [address] 10/05/2025 8:30 AM EST Appointment [address] [place] [address] Petty Marshall PA [address] [place] [address] [email or web address] documented as of this encounter Results * Urinalysis (04/29/2019 9:29 AM EDT) COLOR Yellow Yellow [facility] CLARITY Clear [facility] GLUCOSE Negative Negative [facility] BILI Negative Negative [facility] KETONES Negative Negative [facility] SPECIFIC GRAVITY 1.010 1.005 - 1.030 [facility] BLOOD Negative Negative [facility] PH 7.5 5.0 - 8.0 [facility] Protein-UA Negative Negative [facility] NITRITE Negative Negative [facility] Leukocyte esterase, ur Negative Negative [facility] Urine (Urine) 04/29/2019 9:2 9 AM EDT 04/29/2019 9:31 AM EDT us Petty PENALOZA URINE ORDERABLES Final Result Performing Organization Address [facility]/ZIP Co de Phone Number [address] [address] * Vitamin B12 (04/29/2019 9:15 AM EDT) VITAMIN B12 254 232 - 1,245 pg/mL [facility] Blood 04/29/2019 9:15 AM EDT 04/29/2019 9:20 AM EDT Petty PENALOZA LAB BLOOD ORDERABLES Final Resu lt Performing Organization Address [facility]/ZIP Co de Phone Number [address] [address] * Folate (04/29/2019 9:15 AM EDT) FOLIC ACID 18.5 4.2 - 19.9 ng/mL [facility] Blood 04/29/2019 9:15 AM EDT 04/29/2019 9:20 AM EDT us Petty PENALOZA LAB BLOOD ORDERABLES Final Resu lt [facility] [address] [place] [address] * CBC and differential (04/29/2019 9:15 AM EDT) WBC 3.78 3.40 - 11.20 K/uL [facility] RBC 4.79 3.80 - 4.80 M/uL [facility] HGB 14.0 12.0 - 15.0 g/dL [facility] HCT 42.2 36.0 - 46.0 % [facility] PLT 266 130 - 400 K/uL [facility] MCV 88.1 79.0 - 98.0 fL [facility] MCH 29.2 27.0 - 34.8 pg [facility] MCHC 33.2 31.5 - 36.0 g/dL [facility] RDW 12.4 10.8 - 14.6 % [facility] MPV 10.2 9.4 - 12.4 fl [facility] NRBC 0.00 0.00 /100 WBCs [facility] ABSOLUTE NRBC 0.00 0.00 K/uL [facility] DIFF METHOD Auto [facility] NEUTS 57.1 45.30 - 77.70 % [facility] LYMPHS 30.4 12.30 - 39.70 % [facility] MONOS 8.5 4.10 - 12.80 % [facility] EOS 2.4 0 - 7.2 % [facility] BASOS 1.3 0 - 2.80 % [facility] Granulocytes, immature (%) 0.3 0.0 - 0.9 % [facility] ABSOLUTE NEUTS 2.16 1.40 - 7.70 K/uL [facility] ABSOLUTE LYMPHS 1.15 0.60 - 3.20 K/uL [facility] ABSOLUTE MONOS 0.32 0.11 - 0.59 K/uL [facility] ABSOLUTE EOS 0.09 0.01 - 0.50 K/uL [facility] ABSOLUTE BASOS 0.05 0.00 - 0.08 K/uL [facility] Granulocytes, immature 0.01 0.00 - 0.05 K/uL [facility] Blood 04/29/2019 9:15 AM EDT 04/29/2019 9:20 AM EDT Petty Waleume PA LAB BLOOD ORDERABLES Final Resu lt Performing Organization Address [facility]/ZIP Co de Phone Number [address] [address] * Magnesium (04/29/2019 9:15 AM EDT) MAGNESIUM 2.1 1.6 - 2.6 mg/dL [facility] Blood 04/29/2019 9:15 AM EDT 04/29/2019 9:20 AM EDT us [facility] LAB BLOOD ORDERABLES Final Resu lt Performing Organization Address [facility] Co de Phone Number [address] [address] * TSH with reflex (04/29/2019 9:15 AM EDT) TSH 2.65 0.27 - 4.20 uIU/mL [facility] Blood 04/29/2019 9:15 AM EDT 04/29/2019 9:[address] [facility] LAB BLOOD ORDERABLES Final Resu lt Performing Organization Address [facility] Co de Phone Number [address] [address] * (ABNORMAL) Basic metabolic panel (04/29/2019 9:15 AM EDT) SODIUM 142 133 - 146 mmol/L [facility] CHLORIDE 102 96 - 108 mmol/L [facility] POTASSIUM 4.2 3.3 - 5.1 mmol/L [facility] CO2 28 21 - 35 mmol/L [facility] BUN 16 6 - 19 mg/dL [facility] CREATININE 0.90 0.5 - 1.5 mg/dL [facility] GLUCOSE 103(H) 70 - 99 mg/dL [facility] CALCIUM 9.5 8.4 - 10.3 mg/dL [facility] EGFR 69 >59 mL/min/1.7 3m2 [facility] Comment:If patient is black, multiply result by 1.159. Estimated glomerular filtration rate calculated using the CKD-EPI equation. ANION GAP 16 10 - 20 mmol/L [facility] Blood 04/29/2019 9:15 AM EDT 04/29/2019 9:20 AM EDT us Petty PENALOZA LAB BLOOD ORDERABLES Final Resu lt [address] [address] documented in this encounter Visit Diagnoses Diagnosis Routine general medical examination at a health care facility- Primary Hypertension, unspecified type Weight loss Loss of weight Paresthesia Disturbance of skin sensation documented in this encounter Additional Health Concerns Infection Onset Date Last Indicated Resolved Time CDiff-Risk 05/12/2024 05/16/2024 05/16/2024 11:5 2 AM EDT CoV-Risk 05/12/2024 05/12/2024 05/23/2024 1:22 AM EDT documented as of this encounter Care Teams Steam Room Attendant Relationship Specialty Start Date End Date Alaina Colby MD [address] [place] [address] PCP - General Internal Medicine 09/21/17 07/19/25 Simin River PA [address] [place] [address] PCP - General Physician Visual Merchandising Manager 07/20/25 Alaina Colby MD [address] [place] [address] Insurance Assigned Provider 01/29/21 02/25/22 documented as of this encounter Additional Source Comments The information contained in this document represents components of the legal health record. It is not the complete legal health record.[facility]
--- OUTSIDE RECORDS SUMMARY | 2025-08-04 11:37 | XMS_ITS | Encounter Summary ---
Author Organization [facility] Address [address] [place] [address] Phone Care Team Providers Care Bobbin Trucker Name Role Phone Alaina Colby MD Primary Care Provider Alaina Colby MD Unavailable [phone] Simin River Primary Care Provider [phone] Encounter Details Date Type Department Care Team (Latest Contact Info) Description 12/24/2020 Transcribe Orders Virtual Department [address] [place] [address] Petty Marshall PA [address] [place] [address] [email or web address] Right hand pain (Primary Dx) Social History Tobacco Use Types [...] st Contact Info) Description 03/18/2025 Procedure Pass [address] [place] [address] 10/05/2025 8:30 AM EST Appointment [address] [place] [address] Petty Marshall PA [address] [place] [address] [email or web address] documented as of this encounter Results * XR HAND 3 OR MORE VIEWS (RIGHT) (12/28/2020 3:08 PM EST) Anatomical Region Laterality Modality Hand Right Computed Radiogr aphy 12/28/2020 6:22 PM EST Impressions 12/28/2020 6:24 PM EST Early degenerative changes at the 1st metacarpophalangeal joint. Narrative 12/28/2020 6:24 PM EST EXAM: XR HAND 3 OR MORE VIEWS (RIGHT) COMPARISON: None FINDINGS: No acute fracture or destructive bone lesion. Anatomic alignment is maintained. Mild narrowing at the 1st metacarpophalangeal joint space. Remainder joint spaces are preserved. Soft tissues are grossly unremarkable. No radiopaque foreign body. Procedure Note Maria Luisa Saldana MD - 12/28/2020 EXAM: XR HAND 3 OR MORE VIEWS (RIGHT) COMPARISON: None FINDINGS: No acute fracture or destructive bone lesion. Anatomic alignment ismaintained. Mild narrowing at the 1st metacarpophalangeal joint space.Remainder joint spaces are preserved. Soft tissues are grosslyunremarkable. No radiopaque foreign body. IMPRESSION: Early degenerative changes at the 1st metacarpophalangeal joint. Petty PENALOZA IMG XR UPPER EXTREMITY Final Re sult documented in this encounter Visit Diagnoses Diagnosis Right hand pain- Primary Pain in soft tissues of limb Right hand pain Pain in soft tissues of limb documented in this encounter Additional Health Concerns Infection Onset Date Last Indicated Resolved Time CDiff-Risk 05/12/2024 05/16/2024 05/16/2024 11:5 2 AM EDT CoV-Risk 05/12/2024 05/12/2024 05/23/2024 1:22 AM EDT documented as of this encounter Care Teams Bobbin Trucker Relationship Specialty Start Date End Date Alaina Colby MD [address] [place] [address] [email or web address] PCP - General Internal Medicine 09/21/17 07/19/25 Simin River PA [address] [place] [address] PCP - General Physician Video Intern 07/20/25 Alaina Colby MD [address] [place] [address] [email or web address] Insurance Assigned Provider 01/29/21 02/25/22 documented as of this encounter Additional Source Comments The information contained in this document represents components of the legal health record. It is not the complete legal health record.[facility]
--- OUTSIDE RECORDS SUMMARY | 2025-08-04 11:37 | XMS_ITS | Encounter Summary ---
Author Organization [facility] Address [address] [place] [address] Phone Care Team Providers Care Gas Operations Superintendent Name Role Phone Alaina Colby MD Primary Care Provider Aalina Colby MD Unavailable [phone] Simin River Primary Care Provider [phone] Encounter Details Date Type Department Care Team (Late st Contact Info) Description 12/30/2020 Ancillary Orders Virtual Department [address] [place] [address] Alaina Colby MD [address] [place] [address] [email or web address] Breast screening Social History Tobacco Use Types Packs/Day Years Used Date Smoking Tobacco: Never Assessed Comments No Sex and Gender Information Value Date Recorded Sex Assigned at Not on file Legal Sex Female 9:53 PM EDT Gender Identity Not on file Sexual Orientation Not on file documented as of this encounter Plan of Treatment Upcoming Encounters Date Type Department Care Team (Late Contact Info) Description 03/18/2025 Procedure [address] [place] [address] 10/05/2025 8:30 AM EST Appointment [address] [place] [address] Petty Marshall PA [address] [place] [address] [email or web address] documented as of this encounter Results * BI MAMMOGRAM SCREENING WITH TOMOSYNTHESIS WITH CAD (BILATERAL) (01/11/2021 7:43 AM EDT) Anatomical Region Laterality Modality Breast Left, Breast Right, Breast Bilateral Bila teral Mammography 01/11/2021 12:4 9 PM EDT Impressions 01/11/2021 1:06 PM EDT BILATERAL BREASTS: Benign, no evidence of malignancy. Normal interval follow-up is recommended in 12 months. Bi-RADS: BI-RADS CATEGORY: 2 - Benign finding. DENSITY: The breast tissue is heterogeneously dense, which could obscure a lesion on mammography. Narrative 01/11/2021 1:06 PM EDT STUDY: Bilateral screening mammography with tomosynthesis and CAD TECHNIQUE: Bilateral full-field digital screening mammography is obtained and read in conjunction with computer-aided detection. Tomosynthesis as well as 2-D C view imaging were obtained. COMPARISON: Comparison made to multiple prior, most recent December 26, 2019, and most remote April 09, 2013. BREAST COMPOSITION: The breast tissue is heterogeneously dense, which may obscure small masses. RIGHT BREAST: History of prior excisional biopsy. No significant masses, suspicious calcifications or other abnormalities are seen. LEFT BREAST: No significant masses, suspicious calcifications or other abnormalities are seen. Procedure Note Maria Luisa [place] MD - 01/11/2021 STUDY: Bilateral screening mammography with tomosynthesis and CAD TECHNIQUE: Bilateral full-field digital screening mammography is obtainedand read in conjunction with computer-aided detection. Tomosynthesis aswell as 2-D C view imaging were obtained. COMPARISON: Comparison made to multiple prior, most recent December 26, 2019,and most remote April 09, 2013. BREAST COMPOSITION: The breast tissue is heterogeneously dense, which mayobscure small masses. RIGHT BREAST: History of prior excisional biopsy. No significant masses,suspicious calcifications or other abnormalities are seen. LEFT BREAST: No significant masses, suspicious calcifications or otherabnormalities are seen. IMPRESSION: BILATERAL BREASTS: Benign, no evidence of malignancy. Normal intervalfollow-up is recommended in 12 months. Bi-RADS: BI-RADS CATEGORY: 2 - Benign finding. DENSITY: The breast tissue is heterogeneously dense, which could obscurea lesion on mammography. Alaina Colby MD IMG MG EXAMS Final Resul t documented in this encounter Visit Diagnoses Diagnosis Breast screening Breast screening, unspecified Breast screening Breast screening, unspecified documented in this encounter Additional Health Concerns Infection Onset Date Last Indicated Resolved Time CDiff-Risk 05/12/2024 05/16/2024 05/16/2024 11:5 2 AM EDT CoV-Risk 05/12/2024 05/12/2024 05/23/2024 1:22 AM EDT documented as of this encounter Care Teams Gas Operations Superintendent Relationship Specialty Start Date End Date Alaina Colby MD [address] [place] [address] [email or web address] PCP - General Internal Medicine 09/21/17 07/19/25 Simin River PA [address] [place] [address] PCP - General Physician Measurement Coordinator 07/20/25 Alaina Colby MD [address] [place] [address] [email or web address] Insurance Assigned Provider 01/29/21 02/25/22 documented as of this encounter Additional Source Comments The information contained in this document represents components of the legal health record. It is not the complete legal health record.[facility]
--- OUTSIDE RECORDS SUMMARY | 2025-08-04 11:37 | XMS_ITS | Encounter Summary ---
Author Organization [facility] Address [address] [place] [address] Phone Care Team Providers Care Metal Numerical Control Programmer Name Role Phone Alaina Colby MD Primary Care Provider Simin River Primary Care Provider [phone] Encounter Details Date Type Department Care Team (Late st Contact Info) Description 11/19/2023 Procedure Pass [address] [address] Social History Tobacco Use Types Packs/Day Years [...] Contact Info) Description 03/18/2025 Procedure Pass [address] [place] [address] 10/05/2025 8:30 AM EST Appointment [address] [place] [address] Petty Marshall PA [address] [place] [address] [email or web address] documented as of this encounter Visit Diagnoses Not on filedocumented in this encounter Additional Health Concerns Infection Onset Date Last Indicated Resolved Time CDiff-Risk 05/12/2024 05/16/2024 05/16/2024 11:5 2 AM EDT CoV-Risk 05/12/2024 05/12/2024 05/23/2024 1:22 AM EDT documented as of this encounter Care Teams Metal Numerical Control Programmer Relationship Specialty Start Date End Date Alaina Colby MD [address] [place] [address] [email or web address] PCP - General Internal Medicine 09/21/17 07/19/25 Simin River PA [address] [place] [address] PCP - General Physician Fun House Operator 07/20/25 documented as of this encounter Additional Source Comments The information contained in this document represents components of the legal health record. It is not the complete legal health record.[facility]
== END 2025-08-04 10:06 | disposition home or self-care (01) ==
LOC: HO.MAMMO 10:05
PROVIDERS: PCP Physician Assistant Medical; Visit Provider Physician Assistant Medical
DX: M81.0 Age-related osteoporosis without current pathological fracture (principal)
CPT/HCPCS: 77080

== ENCOUNTER → 2025-08-04 10:30 | Outpatient (BNV) | payer MEDICARE, SELFPAY | PROVIDERS: PCP Physician Assistant Medical; Visit Provider Radiology Diagnostic Radiology | DX: E28.39 Other primary ovarian failure (principal) | CPT/HCPCS: 77080 ==

== ENCOUNTER 2025-09-23 14:31 | Outpatient (REF) | payer MEDICARE, SELFPAY ==
--- NOTE | ~2025-09-23 | MM_ITS ---
EXAMINATION: MM SCREENING DIGITAL BREAST TOMOSYNTHESIS, BILATERAL CLINICAL INFORMATION: Screening. Asymptomatic. History of cyst removed from right breast in 1984. COMPARISON: Comparison made to multiple prior, most recent right diagnostic mammogram on December 27, 2023, and most remote January 11, 2021. TECHNIQUE: Digital breast tomosynthesis is performed in mediolateral oblique and craniocaudal views along with computer-aided detection (CAD). Synthesized 2D images are generated from the tomosynthesis. FINDINGS: BREAST COMPOSITION: There are scattered areas of fibroglandular density. RIGHT BREAST: Previous excisional biopsy. No significant masses, suspicious calcifications or other abnormalities are seen. LEFT BREAST: No significant masses, suspicious calcifications or other abnormalities are seen. MM/MM tomosynthesis screening BI IMPRESSION: BILATERAL BREASTS: Benign, no mammographic evidence of malignancy. Normal interval follow-up is recommended in 12 months. ASSESSMENT: BI-RADS: Category 2: Benign RECOMMENDATION: Routine annual mammography screening. FOLLOW-UP: 1 year F/U This examination should not preclude the clinical evaluation of a suspicious palpable abnormality. This patient's information was entered into a reminder system with a target due date for their next mammogram. Electronically signed by: Maria Luisa Saldana MD 09/30/2025 06:29 PM [facility]
--- OUTSIDE RECORDS SUMMARY | 2025-09-23 17:29 | XMS_ITS | Encounter Summary ---
Author Organization [facility] Address [address] [place] [address] Phone Care Team Providers Care Reporting Process Consultant Name Role Phone Alaina Colby MD Primary Care Provider Alaina Colby MD Unavailable [phone] Simin River Primary Care Provider [phone] Encounter Details Date Type Department Care Team (Latest Contact Info) Description 05/30/2018 Transcribe Orders [facility] Shari [address] [place] [address] Petty Marshall PA [address] [place] [address] [email or web address] Elevated bilirubin (Primary Dx); Essential hypertension, malignant [...] st Contact Info) Description 03/18/2025 Procedure Pass [address] [place] [address] 10/05/2025 8:30 AM EST Appointment [address] [place] [address] Petty Marshall PA [address] [place] [address] [email or web address] documented as of this encounter Results * (ABNORMAL) Comprehensive metabolic panel (05/30/2018 7:42 AM EDT) SODIUM 141 133 - 146 mmol/L [facility] POTASSIUM 4.2 3.3 - 5.1 mmol/L [facility] CHLORIDE 101 96 - 108 mmol/L [facility] CO2 26 21 - 35 mmol/L [facility] BUN 20(H) 6 - 19 mg/dL [facility] CREATININE 0.80 0.5 - 1.5 mg/dL [facility] GLUCOSE 100(H) 70 - 99 mg/dL [facility] ALBUMIN 4.4 3.9 - 4.8 g/dL [facility] TOTAL PROTEIN 7.2 6.5 - 8.0 g/dL [facility] CALCIUM 9.3 8.4 - 10.3 mg/dL [facility] ALKALINE PHOSPHATASE 71 39 - 117 U/L [facility] TOTAL BILIRUBIN 1.4(H) 0.0 - 1.2 mg/dL [facility] AST 27 0 - 37 U/L [facility] ALT 18 0 - 40 U/L [facility] GLOBULIN 2.8 1 - 4.8 g/dL [facility] EGFR 80 >59 mL/min/1.7 3m2 [facility] Comment:If patient is black, multiply result by 1.159. Estimated glomerular filtration rate calculated using the CKD-EPI equation. ANION GAP 18 10 - 20 mmol/L [facility] Blood 05/30/2018 7:42 AM EDT 05/30/2018 7:47 AM EDT us Petty PENALOZA [facility] BLOOD BKR ORDERABLES Final Result [facility] [address] [place] [address] documented in this encounter Visit Diagnoses Diagnosis Elevated bilirubin- Primary Essential hypertension, malignant documented in this encounter Additional Health Concerns Infection Onset Date Last Indicated Resolved Time CDiff-Risk 05/12/2024 05/16/2024 05/16/2024 11:5 2 AM EDT CoV-Risk 05/12/2024 05/12/2024 05/23/2024 1:22 AM EDT documented as of this encounter Care Teams Reporting Process Consultant Relationship Specialty Start Date End Date Alaina Colby MD [address] [place] [address] [email or web address] PCP - General Internal Medicine 09/21/17 07/19/25 Simin River PA [address] [place] [address] PCP - General Physician Locker Attendant 07/20/25 Alaina Colyb MD [address] [place] [address] [email or web address] Insurance Assigned Provider 01/29/21 02/25/22 documented as of this encounter Additional Source Comments The information contained in this document represents components of the legal health record. It is not the complete legal health record.[facility]
--- OUTSIDE RECORDS SUMMARY | 2025-09-23 17:29 | XMS_ITS | Encounter Summary ---
Author Organization [facility] Address [address] [place] [address] Phone Care Team Providers Care Ice Cream Freezer Assistant Name Role Phone Alaina Colby MD Primary Care Provider Alaina Colby MD Unavailable [phone] Simin River Primary Care Provider [phone] Encounter Details Date Type Department Care Team (Late st Contact Info) Description 12/30/2020 Procedure Pass [address] [address] Social History Tobacco Use Types Packs/Day Years [...] Contact Info) Description 03/18/2025 Procedure Pass [address] [place] [address] 10/05/2025 8:30 AM EST Appointment [address] [place] [address] Petty Marshall PA [address] [place] [address] [email or web address] documented as of this encounter Visit Diagnoses Not on filedocumented in this encounter Additional Health Concerns Infection Onset Date Last Indicated Resolved Time CDiff-Risk 05/12/2024 05/16/2024 05/16/2024 11:5 2 AM EDT CoV-Risk 05/12/2024 05/12/2024 05/23/2024 1:22 AM EDT documented as of this encounter Care Teams Ice Cream Freezer Assistant Relationship Specialty Start Date End Date Alaina Colby MD [address] [place] [address] [email or web address] PCP - General Internal Medicine 09/21/17 07/19/25 Simin River PA [address] [place] [address] PCP - General Physician District Leader 07/20/25 Alaina Colby MD [address] [place] [address] [email or web address] Insurance Assigned Provider 01/29/21 02/25/22 documented as of this encounter Additional Source Comments The information contained in this document represents components of the legal health record. It is not the complete legal health record.[facility]
--- OUTSIDE RECORDS SUMMARY | 2025-09-23 17:29 | XMS_ITS | Encounter Summary ---
Author Organization [facility] Address [address] [place] [address] Phone Care Team Providers Care Glycerine Plant Operator Name Role Phone Alaina Colby MD Primary Care Provider Simin River Primary Care Provider [phone] Encounter Details Date Type Department Care Team (Latest Contact Info) Description 03/18/2025 Transcribe Orders Virtual Department [address] [place] [address] Petty Marshall PA [address] [place], [place] [address] [email or web address] Breast screening (Primary Dx) Social History Tobacco [...] st Contact Info) Description 03/18/2025 Procedure Pass [address] [place] [address] 10/05/2025 8:30 AM EST Appointment [address] [place] [address] Petty Marshall PA [address] [place] [address] [email or web address] Scheduled Orders Name Type Priority Associated Diagnoses Orde r Schedule Mammogram Screening (Bilateral) Imaging Routine Breast screening Expected: 04/18/2025, Expires: 03/18/2026 documented as of this encounter Visit Diagnoses Diagnosis Breast screening- Primary Breast screening, unspecified documented in this encounter Care Teams Glycerine Plant Operator Relationship Specialty Start Date End Date Alaina Colby MD [address] [place] [address] PCP - General Internal Medicine 09/21/17 07/19/25 Simin River PA [address] [place] [address] PCP - General Physician Automotive Design Drafter 07/20/25 documented as of this encounter Additional Source Comments The information contained in this document represents components of the legal health record. It is not the complete legal health record.[facility]
--- OUTSIDE RECORDS SUMMARY | 2025-09-23 17:29 | XMS_ITS | Encounter Summary ---
Author Organization [facility] Address [address] [place] [address] Phone Care Team Providers Care Dog Hair Clipper Name Role Phone Alaina Colby MD Primary Care Provider [place] Primary Care Provider [phone] Encounter Details Date Type Department Care Team (Late st Contact Info) Description 11/19/2023 Ancillary Orders [facility], [address] [address] Alaina Colby MD [address] [place] [address] [email or web address] Abnormal finding on mammography (Primary Dx) Social [...] Contact Info) Description 03/18/2025 Procedure Pass [address] [place] [address] 10/05/2025 8:30 AM EST Appointment [address] [place] [address] Petty Marshall PA [address] [place] [address] [email or web address] documented as of this encounter Results * [...] documented as of this encounter Care Teams Dog Hair Clipper Relationship Specialty Start Date End Date Alaina Colby MD [address] [place] [address] PCP - General Internal Medicine 09/21/17 07/19/25 Simin River PA [address] [place] [address] PCP - General Physician Principal Associate 07/20/25 documented as of this encounter Additional Source Comments The information contained in this document represents components of the legal health record. It is not the complete legal health record.[facility]
--- OUTSIDE RECORDS SUMMARY | 2025-09-23 17:29 | XMS_ITS | Encounter Summary ---
Author Organization [facility] Address [address] [place] [address] Phone Care Team Providers Care Partner Marketing Manager Name Role Phone Alaina Colby MD Primary Care Provider [place]in [place] Primary Care Provider [phone] Encounter Details Date Type Department Care Team (Late st Contact Info) Description 11/19/2023 Procedure Pass [address] [address] Social History Tobacco Use Types Packs/Day Years [...] st Contact Info) Description 03/18/2025 Procedure Pass [address] [place] [address] 10/05/2025 8:30 AM EST Appointment [address] [place] [address] Petty Marshall PA [address] [place] [address] [email or web address] documented as of this encounter Visit Diagnoses Not on filedocumented in this encounter Additional Health Concerns Infection Onset Date Last Indicated Resolved Time CDiff-Risk 05/12/2024 05/16/2024 05/16/2024 11:5 2 AM EDT CoV-Risk 05/12/2024 05/12/2024 05/23/2024 1:22 AM EDT documented as of this encounter Care Teams Partner Marketing Manager Relationship Specialty Start Date End Date Alaina Colby MD [address] [place] [address] [email or web address] PCP - General Internal Medicine 09/21/17 07/19/25 Simin River PA [address] [place] [address] PCP - General Physician Manager Merchandising 07/20/25 documented as of this encounter Additional Source Comments The information contained in this document represents components of the legal health record. It is not the complete legal health record.[facility]
--- OUTSIDE RECORDS SUMMARY | 2025-09-23 17:29 | XMS_ITS | Encounter Summary ---
Author Organization [facility] Address [address] [place] [address] Phone Care Team Providers Care Lime Trimmer Name Role Phone Alaina Colby MD Primary Care Provider [place] Primary Care Provider [phone] Encounter Details Date Type Department Care Team (Late st Contact Info) Description 04/11/2024 Procedure Pass [facility], [address] [address] Social History Tobacco Use Types Packs/Day Years [...] Contact Info) Description 03/18/2025 Procedure Pass [address] [place] [address] 10/05/2025 8:30 AM EST Appointment [address] [place] [address] Petty Marshall PA [address] [place] [address] [email or web address] documented as of this encounter Visit Diagnoses Not on filedocumented in this encounter Additional Health Concerns Infection Onset Date Last Indicated Resolved Time CDiff-Risk 05/12/2024 05/16/2024 05/16/2024 11:5 2 AM EDT CoV-Risk 05/12/2024 05/12/2024 05/23/2024 1:22 AM EDT documented as of this encounter Care Teams Lime Trimmer Relationship Specialty Start Date End Date Alaina Colby MD [address] [place] [address] [email or web address] PCP - General Internal Medicine 09/21/17 07/19/25 Simin River PA [address] [place] [address] PCP - General Physician Mortuary Operations Manager 07/20/25 documented as of this encounter Additional Source Comments The information contained in this document represents components of the legal health record. It is not the complete legal health record.[facility]
--- OUTSIDE RECORDS SUMMARY | 2025-09-23 17:29 | XMS_ITS | Encounter Summary ---
Author Organization [facility] Address [address] [place] [address] Phone Care Team Providers Care Motor Equipment Captain Name Role Phone Alaina Colby MD Primary Care Provider [phone] Simin River Primary Care Provider [phone] Encounter Details Date Type Department Care Team (Latest Contact Info) Description 09/04/2022 Transcribe Orders Virtual Department [address] [place] [address] Petty Marshall PA [address] [place] [address] [email or web address] Encounter for screening mammogram for malignant neoplasm [...] st Contact Info) Description 03/18/2025 Procedure Pass [address] [place] [address] 10/05/2025 8:30 AM EST Appointment [address] [place] [address] Petty Marshall PA [address] [place] [address] [email or web address] documented as of this encounter Results * [...] documented as of this encounter Care Teams Motor Equipment Captain Relationship Specialty Start Date End Date Alaina Colby MD [address] [place] [address] [email or web address] PCP - General Internal Medicine 09/21/17 07/19/25 Simin River PA [address] [place] [address] PCP - General Physician Microsoft Dynamics Developer 07/20/25 documented as of this encounter Additional Source Comments The information contained in this document represents components of the legal health record. It is not the complete legal health record.[facility]
--- OUTSIDE RECORDS SUMMARY | 2025-09-23 17:29 | XMS_ITS | Encounter Summary ---
Author Organization [facility] Address [address] [place] [address] Phone Care Team Providers Care Fence Setter Name Role Phone Alaina Colby MD Primary Care Provider [phone] Simin River Primary Care Provider [phone] Encounter Details Date Type Department Care Team (Late st Contact Info) Description 08/31/2023 Transcribe Orders Virtual Department [address] [place] [address] Alaina Colby MD [address] [place] [address] [email or web address] Breast screening (Primary Dx) Social History Tobacco [...] st Contact Info) Description 03/18/2025 Procedure Pass [address] [place] [address] 10/05/2025 8:30 AM EST Appointment [address] [place] [address] Petty Marshall PA [address] [place] [address] [email or web address] documented as of this encounter Results * [...] findings suspicious for malignancy. The [facility] will attempt to recall the patient for [...] documented as of this encounter Care Teams Fence Setter Relationship Specialty Start Date End Date Alaina Colby MD [address] [place] [address] PCP - General Internal Medicine 09/21/17 07/19/25 Simin River PA [address] [place] [address] PCP - General Physician Editorial Specialist 07/20/25 documented as of this encounter Additional Source Comments The information contained in this document represents components of the legal health record. It is not the complete legal health record.[facility]
--- OUTSIDE RECORDS SUMMARY | 2025-09-23 17:29 | XMS_ITS | Encounter Summary ---
Author Organization [facility] Address [address] [place] [address] Phone Care Team Providers Care Film Spooler Name Role Phone Alaina Colby MD Primary Care Provider [phone] Simin River Primary Care Provider [phone] Encounter Details Date Type Department Care Team (Latest Contact Info) Description 09/23/2024 Transcribe Orders Virtual Department [address] [place] [address] Petty Marshall PA [address] [place] [address] [email or web address] Postmenopausal (Primary Dx) Social History Tobacco Use [...] Contact Info) Description 03/18/2025 Procedure Pass [address] [place] [address] 10/05/2025 8:30 AM EST Appointment [address] [place] [address] Petty Marshall PA [address] [place] [address] [email or web address] documented as of this encounter Visit Diagnoses Diagnosis Postmenopausal- Primary Asymptomatic postmenopausal status (age-related) (natural) documented in this encounter Care Teams Film Spooler Relationship Specialty Start Date End Date Alaina Colby MD [address] [place] [address] PCP - General Internal Medicine 09/21/17 07/19/25 Simin River PA [address] [place] [address] PCP - General Physician Track Laborer 07/20/25 documented as of this encounter Additional Source Comments The information contained in this document represents components of the legal health record. It is not the complete legal health record.[facility]
--- OUTSIDE RECORDS SUMMARY | 2025-09-23 17:29 | XMS_ITS | Encounter Summary ---
Author Organization [facility] Address [address] [place] [address] Phone Care Team Providers Care It Senior Analyst Name Role Phone Alaina Colby MD Primary Care Provider Alaina Colby MD Unavailable [phone] Simin River Primary Care Provider + [phone] Encounter Details Date Type Department Care Team (Latest Contact Info) Description 04/29/2019 Transcribe Orders [facility] Phleb Shari [address] [place] [address] Petty Marshall PA [address] [place] [address] [email or web address] Routine general medical examination at a health [...] st Contact Info) Description 03/18/2025 Procedure Pass [address] [place] [address] 10/05/2025 8:30 AM EST Appointment [address] [place] [address] Petty Marshall PA [address] [place] [address] [email or web address] documented as of this encounter Results * Urinalysis (04/29/2019 9:29 AM EDT) COLOR Yellow Yellow [facility] CLARITY Clear [facility] GLUCOSE Negative Negative [facility] BILI Negative Negative [facility] KETONES Negative Negative [facility] SPECIFIC GRAVITY 1.010 1.005 - 1.030 [facility] BLOOD Negative Negative [facility] PH 7.5 5.0 - 8.0 [facility] Protein-UA Negative Negative [facility] NITRITE Negative Negative [facility] Leukocyte esterase, ur Negative Negative [facility] Urine (Urine) 04/29/2019 9:2 9 AM EDT 04/29/2019 9:31 AM EDT us Petty PENALOZA LAB URINE ORDERABLES Final Resu lt Performing Organization Address City/[facility]/ZIP Co de Phone Number [address] [address] * Vitamin B12 (04/29/2019 9:15 AM EDT) VITAMIN B12 254 232 - 1,245 pg/mL [facility] Blood 04/29/2019 9:15 AM EDT 04/29/2019 9:20 AM EDT us Petty PENALOZA LAB BLOOD BKR ORDERABLES Final Result Performing Organization Address City/[facility]/ZIP Co de Phone Number [address] [address] * Folate (04/29/2019 9:15 AM EDT) FOLIC ACID 18.5 4.2 - 19.9 ng/mL [facility] Blood 04/29/2019 9:15 AM EDT 04/29/2019 9:20 AM EDT us Petty PENALOZA LAB BLOOD BKR ORDERABLES Final Result [facility] [address] [place] [address] * CBC and differential (04/29/2019 9:15 AM EDT) WBC 3.78 3.40 - 11.20 K/uL [facility] RBC 4.79 3.80 - 4.80 M/uL [facility] HGB 14.0 12.0 - 15.0 g/dL [facility] HCT 42.2 36.0 - 46.0 % [facility] PLT 266 130 - 400 K/uL [facility] MCV 88.1 79.0 - 98.0 fL [facility] MCH 29.2 27.0 - 34.8 pg [facility] MCHC 33.2 31.5 - 36.0 g/dL [facility] RDW 12.4 10.8 - 14.6 % [facility] MPV 10.2 9.4 - 12.4 fl [facility] NRBC 0.00 0.00 /100 WBCs [facility] ABSOLUTE NRBC 0.00 0.00 K/uL [facility] DIFF METHOD Auto [facility] NEUTS 57.1 45.30 - 77.70 % [facility] LYMPHS 30.4 12.30 - 39.70 % [facility] MONOS 8.5 4.10 - 12.80 % [facility] EOS 2.4 0 - 7.2 % [facility] BASOS 1.3 0 - 2.80 % [facility] Granulocytes, immature (%) 0.3 0.0 - 0.9 % [facility] ABSOLUTE NEUTS 2.16 1.40 - 7.70 K/uL [facility] ABSOLUTE LYMPHS 1.15 0.60 - 3.20 K/uL [facility] ABSOLUTE MONOS 0.32 0.11 - 0.59 K/uL [facility] ABSOLUTE EOS 0.09 0.01 - 0.50 K/uL [facility] ABSOLUTE BASOS 0.05 0.00 - 0.08 K/uL [facility] Granulocytes, immature 0.01 0.00 - 0.05 K/uL [facility] Blood 04/29/2019 9:15 AM EDT 04/29/2019 9:20 AM EDT Petty Blume PA LAB BLOOD BKR ORDERABLES Final Result Performing Organization Address [facility]/ZIP Co de Phone Number [address] [address] * Magnesium (04/29/2019 9:15 AM EDT) MAGNESIUM 2.1 1.6 - 2.6 mg/dL [facility] Blood 04/29/2019 9:15 AM EDT 04/29/2019 9:20 AM EDT [facility] BLOOD BKR ORDERABLES Final Result Performing Organization Address [facility]/ZIP Co de Phone Number [address] [address] * TSH with reflex (04/29/2019 9:15 AM EDT) Pathologist [facility] TSH 2.65 0.27 - 4.20 uIU/mL [facility] Blood 04/29/2019 9:15 AM EDT 04/29/2019 9:20 AM EDT [facility] LAB BLOOD BKR ORDERABLES Final Result Performing Organization Address [facility] Co de Phone Number [address] [address] * (ABNORMAL) Basic metabolic panel (04/29/2019 9:15 AM EDT) SODIUM 142 133 - 146 mmol/L [facility] CHLORIDE 102 96 - 108 mmol/L [facility] POTASSIUM 4.2 3.3 - 5.1 mmol/L [facility] CO2 28 21 - 35 mmol/L [facility] BUN 16 6 - 19 mg/dL [facility] CREATININE 0.90 0.5 - 1.5 mg/dL [facility] GLUCOSE 103(H) 70 - 99 mg/dL [facility] CALCIUM 9.5 8.4 - 10.3 mg/dL [facility] EGFR 69 >59 mL/min/1.7 3m2 [facility] Comment:If patient is black, multiply result by 1.159. Estimated glomerular filtration rate calculated using the CKD-EPI equation. ANION GAP 16 10 - 20 mmol/L [facility] Blood 04/29/2019 9:15 AM EDT 04/29/2019 9:20 AM EDT us Petty PENALOZA LAB BLOOD BKR ORDERABLES Final Result Performing Organization Address City/State/[facility] Co de Phone Number [facility] [address] [place] [address] documented in this encounter Visit Diagnoses Diagnosis [...] documented as of this encounter Care Teams It Senior Analyst Relationship Specialty Start Date End Date Alaina Colby MD [address] [place] [address] [email or web address] PCP - General Internal Medicine 09/21/17 07/19/25 Simin River PA [address] [place] [address] PCP - General Physician School Curriculum Developer 07/20/25 Alaina Colby MD [address] [place] [address] [email or web address] Insurance Assigned Provider 01/29/21 02/25/22 documented as of this encounter Additional Source Comments The information contained in this document represents components of the legal health record. It is not the complete legal health record.[facility]
--- OUTSIDE RECORDS SUMMARY | 2025-09-23 17:29 | XMS_ITS | Encounter Summary ---
Author Organization [facility] Address [address] [place] [address] Phone Care Team Providers Care Defensive Driving Instructor Name Role Phone Alaina Colby MD Primary Care Provider Alaina Colby MD Unavailable [phone] Simin River Primary Care Provider + [phone] Encounter Details Date Type Department Care Team (Latest Contact Info) Description 09/21/2017 Transcribe Orders [facility] Phleb Shari [address] [place] [address] Petty Marshall PA [address] [place] [address] [email or web address] Routine medical exam (Primary Dx); Abnormal weight [...] st Contact Info) Description 03/18/2025 Procedure Pass [address] [place] [address] 10/05/2025 8:30 AM EST Appointment [address] [place] [address] Petty Marshall PA [address] [place] [address] [email or web address] documented as of this encounter Results * (ABNORMAL) Urinalysis (09/21/2017 8:54 AM EST) COLOR STRAW(A) Yellow [facility] CLARITY Clear [facility] GLUCOSE Negative Negative [facility] BILI Negative Negative [facility] KETONES Negative Negative [facility] SPECIFIC GRAVITY 1.025 1.005 - 1.030 [facility] BLOOD Trace(A) Negative [facility] PH 5.5 5.0 - 8.0 [facility] Protein-UA Negative Negative [facility] NITRITE Negative Negative [facility] Leukocyte esterase, ur Negative Negative [facility] Urine (Urine) 09/21/2017 8:5 4 AM EST 09/21/2017 2:06 PM EST us Petty PENALOZA LAB URINE ORDERABLES Final Resu lt [facility] [address] [place] [address] * (ABNORMAL) CBC (09/21/2017 8:54 AM EST) WBC 3.85 3.40 - 11.20 K/uL [facility] RBC 4.84(H) 3.80 - 4.80 M/uL [facility] HGB 14.5 12.0 - 15.0 g/dL [facility] HCT 41.6 36.0 - 46.0 % [facility] PLT 305 130 - 400 K/uL [facility] MCV 86.0 79.0 - 98.0 fL [facility] MCH 30.0 27.0 - 34.8 pg [facility] MCHC 34.9 31.5 - 36.0 g/dL [facility] RDW 12.6 10.8 - 14.6 % [facility] MPV 10.3 9.4 - 12.4 fl [facility] NRBC 0.00 /100 WBCs [facility] ABSOLUTE NRBC 0.00 K/uL [facility] Blood 09/21/2017 8:54 AM EST 09/21/2017 9:00 AM EST us Petty Marshall PA LAB BLOOD BKR ORDERABLES Final Result Performing Organization Address City/[facility]/ZIP Co de Phone Number [address] [address] * TSH with reflex (09/21/2017 8:54 AM EST) TSH 2.98 0.27 - 4.20 uIU/mL [facility] Blood 09/21/2017 8:54 AM EST 09/21/2017 9:00 AM EST us Petty Joanna PA LAB BLOOD BKR ORDERABLES Final Result Performing Organization Address [facility] Co de Phone Number [address] [address] * (ABNORMAL) Lipid panel (09/21/2017 8:54 AM EST) HDL 167 mg/dL [facility] Comment: Interpretation: Risk Level Females Decreased >55mg/dL Average 50-55 mg/dL Increased <50 mg/dL CHOLESTEROL 321(H) 0 - 240 mg/dL [facility] TRIGLYCERIDES 61 30 - 160 mg/dL [facility] LDL 142(H) 50 - 129 mg/dL [facility] Comment: LDL levels in terms of risk for coronary heart disease: <100 mg/dL: Optimal 100-129 mg/dL: Near or above optimal 130-159 mg/dL: Borderline high 160-189 mg/dL: High >190 mg/dL: Very High CARDIAC RISK RATIO 1.9(L) 3.3 - 4.4 C [facility] Blood 09/21/2017 8:54 AM EST 09/21/2017 9:00 AM EST us Petty Blume PA LAB BLOOD BKR ORDERABLES Final Result Performing Organization Address City/[facility]/ZIP Co de Phone Number [address] [address] * (ABNORMAL) Comprehensive metabolic panel (09/21/2017 8:54 AM EST) SODIUM 139 133 - 146 mmol/L [facility] POTASSIUM 4.1 3.3 - 5.1 mmol/L [facility] CHLORIDE 99 96 - 108 mmol/L [facility] CO2 28 21 - 35 mmol/L [facility] BUN 24(H) 6 - 19 mg/dL [facility] CREATININE 0.90 0.5 - 1.5 mg/dL [facility] GLUCOSE 85 70 - 99 mg/dL [facility] ALBUMIN 4.3 3.9 - 4.8 g/dL [facility] TOTAL PROTEIN 7.2 6.5 - 8.0 g/dL [facility] CALCIUM 9.7 8.4 - 10.3 mg/dL [facility] ALKALINE PHOSPHATASE 66 39 - 117 U/L [facility] TOTAL BILIRUBIN 1.3(H) 0 - 1.2 mg/dL [facility] AST 21 0 - 37 U/L [facility] ALT 14 0 - 40 U/L [facility] GLOBULIN 2.9 1 - 4.8 g/dL [facility] EGFR >60 60 - 1000 mL/min/1.7 3m2 [facility] Comment:Abnormal if <60. If patient is -Mauritian, multiply the result by 1.21. ANION GAP 16 10 - 20 mmol/L [facility] Blood 09/21/2017 8:54 AM EST 09/21/2017 9:00 AM EST us Petty PENALOZA LAB BLOOD BKR ORDERABLES Final Result [address] [address] documented in this encounter Visit Diagnoses Diagnosis [...] documented as of this encounter Care Teams Defensive Driving Instructor Relationship Specialty Start Date End Date Alaina Colby MD [address] [place] [address] [email or web address] PCP - General Internal Medicine 09/21/17 07/19/25 Simin River PA [address] [place] [address] PCP - General Physician Physical Therapist Center Manager 07/20/25 Alaina Colby MD [address] [place] [address] [email or web address] Insurance Assigned Provider 01/29/21 02/25/22 documented as of this encounter Additional Source Comments The information contained in this document represents components of the legal health record. It is not the complete legal health record.[facility]
--- OUTSIDE RECORDS SUMMARY | 2025-09-23 17:29 | XMS_ITS | Encounter Summary ---
Author Organization [facility] Address [address] [place] [address] Phone Care Team Providers Care Design Engineering Specialist Name Role Phone Alaina Colby MD Primary Care Provider [phone] Alaina Colby MD Unavailable [phone] Simin River Primary Care Provider + [phone] Encounter Details Date Type Department Care Team (Latest Contact Info) Description 12/24/2020 Transcribe Orders Virtual Department [address] [place] [address] Petty Marshall PA [address] [place] [address] [email or web address] Right hand pain (Primary Dx) Social History [...] Contact Info) Description 03/18/2025 Procedure Pass [address] [place] [address] 10/05/2025 8:30 AM EST Appointment [address] [place] [address] Petty Marshall PA [address] [place] [address] [email or web address] documented as of this encounter Results * [...] documented as of this encounter Care Teams Design Engineering Specialist Relationship Specialty Start Date End Date Alaina Colby MD [address] [place] [address] [email or web address] PCP - General Internal Medicine 09/21/17 07/19/25 Simin River PA [address] [place] [address] PCP - General Physician Well Logging Operator Mud Analysis 07/20/25 Alaina Colby MD [address] [place] [address] [email or web address] Insurance Assigned Provider 01/29/21 02/25/22 documented as of this encounter Additional Source Comments The information contained in this document represents components of the legal health record. It is not the complete legal health record.[facility]
--- OUTSIDE RECORDS SUMMARY | 2025-09-23 17:29 | XMS_ITS | Encounter Summary ---
Author Organization [facility] Address [address] [place] [address] Phone Care Team Providers Care Milk Collector Name Role Phone Alaina Colby MD Primary Care Provider Alaina Colby MD Unavailable [phone] Simin River Primary Care Provider [phone] Encounter Details Date Type Department Care Team (Late st Contact Info) Description 10/08/2018 Ancillary Orders Virtual Department [address] [place] [address] Petty Marshall PA [address] [place] [address] [email or web address] Visit for screening mammogram Social History Tobacco [...] st Contact Info) Description 03/18/2025 Procedure Pass [address] [place] [address] 10/05/2025 8:30 AM EST Appointment [address] [place] [address] Petty Marshall PA [address] [place] [address] [email or web address] documented as of this encounter Results * [...] documented as of this encounter Care Teams Milk Collector Relationship Specialty Start Date End Date Alaina Colby MD [address] [place] [address] [email or web address] PCP - General Internal Medicine 09/21/17 07/19/25 Simin River PA [address] [place] [address] PCP - General Physician Media Center Assistant 07/20/25 Alaina Colby MD [address] [place] [address] [email or web address] Insurance Assigned Provider 01/29/21 02/25/22 documented as of this encounter Additional Source Comments The information contained in this document represents components of the legal health record. It is not the complete legal health record.[facility]
--- OUTSIDE RECORDS SUMMARY | 2025-09-23 17:29 | XMS_ITS | Encounter Summary ---
Author Organization [facility] Address [address] [place] [address] Phone Care Team Providers Care Metallic Yarn Slitting Machine Operator Name Role Phone Alaina Colby MD Primary Care Provider [phone] Simin River Primary Care Provider [phone] Reason for Referral * MRI/CAT Scan - Closed Specialty Diagnoses / Procedures Referred By Contac t Referred To Contact Radiology Diagnoses Numbness Lumbosacral radiculopathy at L5 Procedures MRI Lumbar Spine CHG MRI, LUMBAR SPINE COMBO CHG MRI, LUMBAR SPINE CONTRAST Keith Nassar MD [address] [place] [address], [address] [place] [address] Phone: tel: fax: [email or web address] Referral ID Status Reason Start Date Expiration Date Visits Re quested Visits Authorized [id number] Closed 04/11/2024 06/08/2024 1 1 Encounter Details Date Type Department Care Team (Latest Contact Info) Description 04/11/2024 Transcribe Orders Virtual Department [address] [place] [address] Keith Nassar MD [address] [place] [address], [address] [place], [place] [id number] [email or web address] Numbness (Primary Dx); Lumbosacral radiculopathy at [...] Contact Info) Description 03/18/2025 Procedure Pass [address] [place] [address] 10/05/2025 8:30 AM EST Appointment [address] [place] [address] Petty Marshall PA [address] [place] [address] [email or web address] documented as of this encounter Results * [...] clinician's provided indication for this examination in [facility]: Outside Radiology Order; numbness TECHNIQUE: MRI LUMBAR [...] clinician's provided indication for this examination in [facility]:Outside Radiology Order; numbness TECHNIQUE: MRI LUMBAR SPINE [...] small perineural cysts on the LEFT side [id number] and over the sacral segments. Findings by [...] documented as of this encounter Care Teams Metallic Yarn Slitting Machine Operator Relationship Specialty Start Date End Date Alaina Colby MD [address] [place] [address] [email or web address] PCP - General Internal Medicine 09/21/17 07/19/25 Simin River PA [address] [place] [address] PCP - General Physician Leasing Associate 07/20/25 documented as of this encounter Additional Source Comments The information contained in this document represents components of the legal health record. It is not the complete legal health record.[facility]
--- OUTSIDE RECORDS SUMMARY | 2025-09-23 17:29 | XMS_ITS | Clinical Summary ---
Author Organization [facility] Address [address] [place] [address] Phone Care Team Providers Care Automotive Power Electronics Engineer Name Role Phone Simin River Primary Care Provider [phone] Allergies No known active allergies Medications hydroCHLOROthiaz [...] st Contact Info) Description 03/18/2025 Procedure Pass [address] [place] [address] 10/05/2025 8:30 AM EST Appointment [address] [place] [address] Petty Marshall PA [address] [place] [address] [email or web address] Health Maintenance Due Date Last Done Comments [...] without hematuria, site unspecified COMPREHENSIVE METABOLIC PANEL (CMP) Routine 04/25/2025 10:10 AM EDT Hypertension, unspecified type Hyperlipidemia, unspecified hyperlipidemia type Urinary tract infection without hematuria, site unspecified BI MAMMOGRAM SCREENING WITH TOMOSYNTHESIS WITH CAD (BILATERAL) Routine 11/13/2023 3:35 PM EST Breast screening from Last 3 Months or Most Recently Relevant to Health Maintenance Results * (ABNORMAL) Comprehensive metabolic panel (04/25/2025 10:10 AM EDT) SODIUM 140 133 - 146 mmol/L [facility] POTASSIUM 4.0 3.3 - 5.1 mmol/L [facility] CHLORIDE 101 96 - 108 mmol/L [facility] CO2 27 21 - 35 mmol/L [facility] BUN 22(H) 6 - 19 mg/dL [facility] CREATININE 0.80 0.5 - 1.5 mg/dL [facility] GLUCOSE 84 70 - 99 mg/dL [facility] ALBUMIN 4.5 3.9 - 4.8 g/dL [facility] TOTAL PROTEIN 7.3 6.5 - 8.0 g/dL [facility] CALCIUM 9.6 8.4 - 10.3 mg/dL [facility] ALKALINE PHOSPHATASE 84 39 - 117 U/L [facility] TOTAL BILIRUBIN 0.9 0.0 - 1.2 mg/dL [facility] AST 25 0 - 37 U/L [facility] ALT 15 0 - 40 U/L [facility] GLOBULIN 2.8 1 - 4.8 g/dL [facility] EGFR 80 >59 mL/min/1.7 3m2 [facility] Comment:Estimated glomerular filtration rate calculated using the CKD-EPI refit equation. ANION GAP 16 10 - 20 mmol/L [facility] Blood 04/25/2025 10:1 0 AM EDT 04/25/2025 10:13 AM EDT Petty PENALOZA LAB BLOOD BKR ORDERABLES Final Result [address] [address] * (ABNORMAL) Lipid panel (04/25/2025 10:10 AM EDT) HDL 161 mg/dL [facility] Comment: Interpretation <40 mg/dL: Low HDL cholesterol (major risk factor for CHD) Greater than or equal to 60 mg/dL: High HDL cholesterol ( negative risk factor for CHD) HDL - cholesterol is affected by a number of factors, e.g. smoking, excerise, hormones, sex and age. CHOLESTEROL 305(H) 0 - 240 mg/dL [facility] TRIGLYCERIDES 62 30 - 160 mg/dL [facility] LDL 132(H) 50 - 129 mg/dL [facility] Comment: LDL levels in terms of risk for coronary heart disease: <100 mg/dL: Optimal 100-129 mg/dL: Near or above optimal 130-159 mg/dL: Borderline high 160-189 mg/dL: High >190 mg/dL: Very High CARDIAC RISK RATIO 1.9(L) 3.3 - 4.4 [facility] Blood 04/25/2025 10:1 0 AM EDT 04/25/2025 10:13 AM EDT Petty PENALOZA LAB BLOOD BKR ORDERABLES Final Result [facility] [address] [place] [address] * (ABNORMAL) BI MAMMOGRAM SCREENING WITH TOMOSYNTHESIS [...] findings suspicious for malignancy. The radiology of [facility] will attempt to recall the patient [...] BLUE REPLACEMENT MEDICARE PART A & B [facility] MEDICARE PPO BLUE REPLACEMENT MEDICARE PART A & B [facility] MEDICARE PPO BLUE REPLACEMENT MEDICARE PART A & B [facility] [place] [place] MEDIC[place] P[place] BLUE REPLACEMENT MEDICARE PART A & B [facility] MEDICARE PPO BLUE REPLACEMENT MEDICARE PART A & B [facility] MEDICARE PPO BLUE REPLACEMENT Care Teams Automotive Power Electronics Engineer Relationship Specialty Start Date End Date Simin River PA [address] [place] [address] PCP - General Physician Concrete Polisher 07/20/25 Additional Source Comments The information contained in this document represents components of the legal health record. It is not the complete legal health record.[facility]
--- OUTSIDE RECORDS SUMMARY | 2025-09-23 17:29 | XMS_ITS | Encounter Summary ---
Author Organization [facility] Address [address] [place] [address] Phone Care Team Providers Care Corrugated Sheet Material Sheeter Name Role Phone Alaina Colby MD Primary Care Provider [phone] Simin River Primary Care Provider [phone] Encounter Details Date Type Department Care Team (Late st Contact Info) Description 09/04/2022 Procedure Pass [address] [address] Social History Tobacco Use Types Packs/Day Years [...] st Contact Info) Description 03/18/2025 Procedure Pass [address] [place] [address] 10/05/2025 8:30 AM EST Appointment [address] [place] [address] Petty Marshall PA [address] [place] [address] [email or web address] documented as of this encounter Visit Diagnoses Not on filedocumented in this encounter Additional Health Concerns Infection Onset Date Last Indicated Resolved Time CDiff-Risk 05/12/2024 05/16/2024 05/16/2024 11:5 2 AM EDT CoV-Risk 05/12/2024 05/12/2024 05/23/2024 1:22 AM EDT documented as of this encounter Care Teams Corrugated Sheet Material Sheeter Relationship Specialty Start Date End Date Alaina Colby MD [address] [place] [address] [email or web address] PCP - General Internal Medicine 09/21/17 07/19/25 Simin River PA [address] [place] [address] PCP - General Physician Cutlery Grinder 07/20/25 documented as of this encounter Additional Source Comments The information contained in this document represents components of the legal health record. It is not the complete legal health record.[facility]
--- OUTSIDE RECORDS SUMMARY | 2025-09-23 17:29 | XMS_ITS | Encounter Summary ---
Author Organization [facility] Address [address] [place] [address] Phone Care Team Providers Care Manager Asset Management Name Role Phone Alaina Colby MD Primary Care Provider Simin River Primary Care Provider [phone] Encounter Details Date Type Department Care Team (Late st Contact Info) Description 08/31/2023 Procedure Pass [address] [address] Social History Tobacco Use Types Packs/Day Years [...] st Contact Info) Description 03/18/2025 Procedure Pass [address] [place] [address] 10/05/2025 8:30 AM EST Appointment [address] [place] [address] Petty Marshall PA [address] [place] [address] [email or web address] documented as of this encounter Visit Diagnoses Not on filedocumented in this encounter Additional Health Concerns Infection Onset Date Last Indicated Resolved Time CDiff-Risk 05/12/2024 05/16/2024 05/16/2024 11:5 2 AM EDT CoV-Risk 05/12/2024 05/12/2024 05/23/2024 1:22 AM EDT documented as of this encounter Care Teams Manager Asset Management Relationship Specialty Start Date End Date Alaina Colby MD [address] [place] [address] [email or web address] PCP - General Internal Medicine 09/21/17 07/19/25 Simin River PA [address] [place] [id number] PCP - General Physician Survey Instrument Operator 07/20/25 documented as of this encounter Additional Source Comments The information contained in this document represents components of the legal health record. It is not the complete legal health record.[facility]
--- OUTSIDE RECORDS SUMMARY | 2025-09-23 17:29 | XMS_ITS | Encounter Summary ---
Author Organization [facility] Address [address] [place] [address] Phone Care Team Providers Care Manufacturing Engineering Technician Name Role Phone Alaina Colby MD Primary Care Provider Alaina Colby MD Unavailable [phone] Simin River Primary Care Provider + [phone] Encounter Details Date Type Department Care Team (Late st Contact Info) Description 12/30/2020 Ancillary Orders Virtual Department [address] [place] [address] Alaina Colby MD [address] [place] [address] [email or web address] Breast screening Social History Tobacco Use Types [...] (Late Contact Info) Description 03/18/2025 Procedure Pass [address] [place] [address] 10/05/2025 8:30 AM EST Appointment [address] [place] [address] Petty Marshall PA [address] [place] [address] [email or web address] documented as of this encounter Results * [...] documented as of this encounter Care Teams Manufacturing Engineering Technician Relationship Specialty Start Date End Date Alaina Colby MD [address] [place] [address] [email or web address] PCP - General Internal Medicine 09/21/17 07/19/25 Simin River PA [address] [place] [address] PCP - General Physician Tool Technician 07/20/25 Alaina Colby MD [address] [place] [address] [email or web address] Insurance Assigned Provider 01/29/21 02/25/22 documented as of this encounter Additional Source Comments The information contained in this document represents components of the legal health record. It is not the complete legal health record.[facility]
--- OUTSIDE RECORDS SUMMARY | 2025-09-23 17:29 | XMS_ITS | Encounter Summary ---
Author Organization [facility] Address [address] [place] [address] Phone Care Team Providers Care Project Engineer Chemicals Name Role Phone Alaina Colby MD Primary Care Provider Alaina Colby MD Unavailable [phone] Simin River Primary Care Provider + [phone] Encounter Details Date Type Department Care Team (Late st Contact Info) Description 11/06/2019 Ancillary Orders Virtual Department 30 [place] [address] Petty Marshall PA [address] [place] [address] [email or web address] Breast screening Social History Tobacco Use Types [...] st Contact Info) Description 03/18/2025 Procedure Pass [address] [place] [address] 10/05/2025 8:30 AM EST Appointment [address] [place] [address] Petty Marshall PA [address] [place] [address] [email or web address] documented as of this encounter Results * [...] lowers the sensitivity of mammography. POS - [id number] Narrative 12/26/2019 1:34 PM EST Bilateral mammography [...] whichlowers the sensitivity of mammography. POS - [id number] Petty PENALOZA IMG MG EXAMS Final Result documented in this encounter Visit Diagnoses Diagnosis Breast screening Breast screening, unspecified Breast screening Breast screening, unspecified documented in this encounter Additional Health Concerns Infection Onset Date Last Indicated Resolved Time CDiff-Risk 05/12/2024 05/16/2024 05/16/2024 11:5 2 AM EDT CoV-Risk 05/12/2024 05/12/2024 05/23/2024 1:22 AM EDT documented as of this encounter Care Teams Project Engineer Chemicals Relationship Specialty Start Date End Date Alaina Colby MD [address] [place] [address] [email or web address] PCP - General Internal Medicine 09/21/17 07/19/25 Simin River PA [address] [place] [address] PCP - General Physician Senior Mechanical Project Engineer 07/20/25 Alaina Colby MD [address] [place] [address] [email or web address] Insurance Assigned Provider 01/29/21 02/25/22 documented as of this encounter Additional Source Comments The information contained in this document represents components of the legal health record. It is not the complete legal health record.[facility]
== END 2025-09-23 14:32 | disposition home or self-care (01) ==
LOC: HO.MAMMO 14:31
PROVIDERS: PCP Physician Assistant Medical; Visit Provider Physician Assistant Medical
DX: Z12.31 Encounter for screening mammogram for malignant neoplasm of breast (principal)
CPT/HCPCS: 77063; 77067

== ENCOUNTER → 2025-09-23 15:00 | Outpatient (BNV) | payer MEDICARE, SELFPAY | PROVIDERS: PCP Physician Assistant Medical; Visit Provider Radiology Body Imaging | DX: Z12.31 Encounter for screening mammogram for malignant neoplasm of breast (principal) | CPT/HCPCS: 77063; 77067 ==

== ENCOUNTER 2025-10-21 10:36 | Outpatient (AMB) | payer MEDICARE, SELFPAY ==
--- OUTSIDE RECORDS SUMMARY | 2024-09-30 06:00 | XMS_ITS ---
Author Organization [facility] Address [address] [place] [address] Care Team Providers Care Art Editor Name Role Phone SLIME LAO PA-C Primary Care Provider David Zaidi Jr Unavailable REASON FOR VISIT screening Encounters Encounter Location Date Provider Diagnosis [facility] Outpatient [address] [place] [phone] 09/30/2024 David Finnegan Jr Colon cancer screening Z12.11 and Personal history of colonic polyps Z86.0100 Assessments Encounter Date Diagnosis (ICD Code) Assessment Notes Treatment Notes Treatment Clinical Notes Section Notes 09/30/2024 Colon cancer screening (ICD-10 - Z12.11) 09/30/2024 Personal history of colonic polyps (ICD-10 - Z86.0100) Plan Of Treatment No Information Progress Notes * DEJA GALVEZDOB: [birth year] (69 yo F)Acc No.[id number]:09/30/2024 COLON WITH MAC Patient: DEJA LUNA Provider: Rosa Maria Finnegan MD :1955 A ge:68 Y S ex:Female Date:09/30/2024 Address:[address] [place] [address] Pcp:SLIME LAO PA-C Subjective: * Chief Complaints: * S creening Assessment: * Assessment: 1. C olon cancer screening - Z12.11 (Primary) 2 . P ersonal history of colonic polyps - Z86.0100 Plan: * Procedure Codes: 4 5378 DIAGNOSTIC [id number] INTRVL 3+YRS PTS CLNSCP [id number] RCMND FLW-UP 10 YRS DOCD Billing Information: * Procedure Codes: 09369 DIAGNOSTIC COLONOSCOPY. 0529F INTRVL 3+YRS PTS CLNSCP DOCD. 0528F RCMND FLW-UP 10 YRS DOCD. * The named appointment provid er may or may not be the originator of this progress note, and it is not deemed complete until electronically signed by the appointment provider. Sign off status: Pending * Provider: Rosa Maria Finnegan MD Date: 2023 Generated for Dina montano/Hui/Leidaitting on: 11:51 AM EST
[2025-10-21 10:45] VITALS: BP 132/70; PULSE 80; TEMP 36.6; O2SAT 96; BMI 25.8
--- NOTE | 2025-10-21 10:45 | AM.OFFWIN_ITS ---
Intake Vital Signs 10/21/25 10:45 Height 5 ft 5 in Weight 155 lb BMI 25.8 BP 132/70 Blood Pressure Location Lt brachial Position Sitting Pulse 80 Pulse Source Pulse Oximeter Temp 97.9 F Temp Source Oral Pulse Oximetry (%) 96 Oxygen Delivery Method Room Air Intake Visit Reasons: EP-cough Intake Note: pt presents with coughing with chest pressure for a little over a week Patient Tobacco Use Status: Former Tobacco user Allergies mold Allergy (Unknown, Verified 10/21/25 10:48) Unknown metals Allergy (Unknown, Uncoded 10/21/25 10:48) Unknown Do you need a note to return to daycare/school/sports/work: No HPI EP-cough HPI Details 69-year-old female patient presents to t he walk-in clinic today with nonproductive cough for over one week now. This initially started as an upper respiratory illness which she had about a week ago. Symptoms have resolved, aside from the cough. She was encouraged by friends to come be evaluated due to the duration of her cough. She states that she has been taking DayQuil/NyQuil as needed, however is able to sleep through the night without waking from the cough. Denies any fevers or chills. Denies any shortness of breath. Has been drinking herbal tea with some benefit. [facility] Medical History History of mammogram (~09/23/25) Encounter for preventive care Establishing care with new doctor, encounter for HTN (hypertension) Surgical History Hx of appendectomy History of lumpectomy of right breast H/O colonoscopy (~09/30/24) Family History Father Diabetes Heart problem Mother Dementia Social History Housing: House Are you a primary residential child care counselor to a significant other at home: No Do you presently have visiting nurse or other home services: No Alcohol intake: current Alcohol intake frequency: holidays/special occasions only Alcohol type: wine Patient Tobacco Use Status: Former Tobacco user service: No Current occupational status: employed Cognitive needs: No Hearing needs: No Vision needs: Yes (rx glasses) Review of Systems Const All systems reviewed & are unremarkable except as noted in HPI and below Physical Exam Vital Signs: Last Vital Signs Temp 97.9 F 10/21/25 10:45 Pulse 80 10/21/25 10:45 BP 132/70 10/21/25 10:45 Pulse Ox 96 10/21/25 10:45 Oxygen Delivery Method Room Air 10/21/25 10:45 BMI result Body Mass Index 25.8 Const General: cooperative, healthy appearing, comfortable and no acute distress HEENT Head: Yes normal to inspection Ears: hearing grossly normal bilaterally General nose exam: Normal external nose present Neck Neck: Yes no lymphadenopathy Resp Effort & Inspection: normal respiratory effort and Actively coughing Quality: dry Auscultation: clear to auscultation bilaterally Cardio Rate: regular rate Rhythm: regular rhythm Skin General skin exam: no rashes or lesions noted Extrem General: Yes capillary refill normal and Yes no clubbing, cyanosis or edema Psych Appearance: grossly normal Mental Status: mental status grossly normal Speech and movement: Normal speech and movement present Assessment & Plan Assessment & Plan (1) Cough in adult: Code(s): R05.9 - Cough, unspecified Plan: Patient has persistent dry cough following an URI last week. Her exam is unremarkable, LS are clear. Cough is nonproductive. She is agreeable to trying Benzonatate, which we reviewed use of. She would like to continue to see if time and at-home remedies will be effective for her cough, which I discussed is a reasonable plan. If she does not improve with time and conservative measures, or if he develops any worsening symptoms, she can certainly return to the walk-in clinic for evaluation. All questions were answered patient verbalizes understanding and agrees to plan. Medications: New benzonatate Take one capsule twice a day as needed for cough. 100 mg PO BID PRN 14 caps 0RF cough 7 days R05.9 - Cough, unspecified Coding Level of Care Code Est Pt Level 4 (08207) Diagnoses Cough in adult R05.9
--- OUTSIDE RECORDS SUMMARY | 2025-10-21 11:50 | XMS_ITS | Encounter Summary ---
Author Organization [facility] Address [address] [place] [address] Phone Care Team Providers Care Urogynaecologist Name Role Phone Alaina Colby MD Primary Care Provider Simin River Primary Care Provider [phone] Encounter Details Date Type Department Care Team (Latest Contact Info) Description 09/23/2024 Transcribe Orders Virtual Department 30 [place] [address] Petty Marshall PA [address] [place] [address] [email or web address] Postmenopausal (Primary Dx) Social History Tobacco Use [...] as of this encounter Plan of Treatment Not on file documented as of this encounter Visit Diagnoses Diagnosis Postmenopausal- Primary Asymptomatic postmenopausal status (age-related) (natural) documented in this encounter Care Teams Urogynaecologist Relationship Specialty Start Date End Date Alaina Colby MD [address] [place] [address] [email or web address] PCP - General Internal Medicine 09/21/17 07/19/25 Simin River PA [address] [place] [address] PCP - General Physician House Wirer 07/20/25 documented as of this encounter Additional Source Comments The information contained in this document represents components of the legal health record. It is not the complete legal health record.[facility]
--- OUTSIDE RECORDS SUMMARY | 2025-10-21 11:50 | XMS_ITS | Encounter Summary ---
Author Organization [facility] Address [address] [place] [address] Phone Care Team Providers Care Core Inserter Name Role Phone Alaina Colby MD Primary Care Provider Simin River Primary Care Provider [phone] Encounter Details Date Type Department Care Team (Late st Contact Info) Description 08/31/2023 Transcribe Orders Virtual Department 30 [place] [address] Alaina Colby MD [address] [place] [address] [email or web address] Breast screening (Primary Dx) Social History Tobacco [...] on file documented as of this encounter Results * [...] views of the rightbreast, right breast ultrasound. us Alaina Colby MD IMG MG EXAMS [...] documented as of this encounter Care Teams Core Inserter Relationship Specialty Start Date End Date Alaina Colby MD [address] [place] [phone] [email or web address] PCP - General Internal Medicine 09/21/17 07/19/25 Simin River PA [address] [place] [address] PCP - General Physician Head Of Sales 07/20/25 documented as of this encounter Additional Source Comments The information contained in this document represents components of the legal health record. It is not the complete legal health record.[facility]
--- OUTSIDE RECORDS SUMMARY | 2025-10-21 11:50 | XMS_ITS | Encounter Summary ---
Author Organization [facility] Address [address] [place] [address] Phone Care Team Providers Care Compressor Station Chief Engineer Name Role Phone Alaina Colby MD Primary Care Provider Alaina Colby MD Unavailable [phone] Simin River Primary Care Provider [phone] Encounter Details Date Type Department Care Team (Latest Contact Info) Description 09/21/2017 Transcribe Orders [facility] Shari [address] [place] [address] Petty Marshall PA [address] [place] [address] [email or web address] Routine medical exam (Primary Dx); Abnormal weight [...] (09/21/2017 8:54 AM EST) COLOR STRAW(A) Yellow [facility] CLARITY Clear [facility] GLUCOSE Negative Negative [facility] BILI Negative Negative [facility] KETONES Negative Negative [facility] SPECIFIC GRAVITY 1.025 1.005 - 1.030 [facility] BLOOD Trace(A) Negative [facility] PH 5.5 5.0 - 8.0 [facility] Protein-UA Negative Negative [facility] NITRITE Negative Negative [facility] Leukocyte esterase, ur Negative Negative [facility] Urine (Urine) 09/21/2017 8:5 4 AM EST 09/21/2017 2:06 PM EST Petty PENALOZA LAB URINE ORDERABLES Final Resu lt Performing Organization Address City/[facility]/ZIP Co de Phone Number [address] [address] * (ABNORMAL) CBC (09/21/2017 8:54 AM EST) WBC 3.85 3.40 - 11.20 K/uL [facility] RBC 4.84(H) 3.80 - 4.80 M/uL [facility] HGB 14.5 12.0 - 15.0 g/dL [facility] HCT 41.6 36.0 - 46.0 % [facility] PLT 305 130 - 400 K/uL [facility] MCV 86.0 79.0 - 98.0 fL [facility] MCH 30.0 27.0 - 34.8 pg [facility] MCHC 34.9 31.5 - 36.0 g/dL [facility] RDW 12.6 10.8 - 14.6 % [facility] MPV 10.3 9.4 - 12.4 fl [facility] NRBC 0.00 /100 WBCs [facility] ABSOLUTE NRBC 0.00 K/uL [facility] Blood 09/21/2017 8:54 AM EST 09/21/2017 9:00 AM EST Petty PENALOZA LAB BLOOD BKR ORDERABLES Final Result Performing Organization Address City/[facility]/ZIP Co de Phone Number [address] [address] * TSH with reflex (09/21/2017 8:54 AM EST) TSH 2.98 0.27 - 4.20 uIU/mL [facility] Blood 09/21/2017 8:54 AM EST 09/21/2017 9:00 AM EST Petty PENALOZA LAB BLOOD BKR ORDERABLES Final Result Performing Organization Address [facility] Co de Phone Number [address] [address] * (ABNORMAL) Lipid panel (09/21/2017 8:54 AM EST) HDL 167 mg/dL [facility] Comment: Interpretation: Risk Level Females Decreased >55mg/dL Average 50-55 mg/dL Increased <50 mg/dL CHOLESTEROL 321(H) 0 - 240 mg/dL [facility] TRIGLYCERIDES 61 30 - 160 mg/dL [facility] LDL 142(H) 50 - 129 mg/dL [facility] Comment: LDL levels in terms of risk for coronary heart disease: <100 mg/dL: Optimal 100-129 mg/dL: Near or above optimal 130-159 mg/dL: Borderline high 160-189 mg/dL: High >190 mg/dL: Very High CARDIAC RISK RATIO 1.9(L) 3.3 - 4.4 C [facility] Blood 09/21/2017 8:54 AM EST 09/21/2017 9:00 AM EST us Petty PENALOZA LAB BLOOD BKR ORDERABLES Final Result Performing Organization Address [facility] Co de Phone Number [address] [address] * (ABNORMAL) Comprehensive metabolic panel (09/21/2017 8:54 AM EST) SODIUM 139 133 - 146 mmol/L [facility] POTASSIUM 4.1 3.3 - 5.1 mmol/L [facility] CHLORIDE 99 96 - 108 mmol/L [facility] CO2 28 21 - 35 mmol/L [facility] BUN 24(H) 6 - 19 mg/dL [facility] CREATININE 0.90 0.5 - 1.5 mg/dL [facility] GLUCOSE 85 70 - 99 mg/dL [facility] ALBUMIN 4.3 3.9 - 4.8 g/dL [facility] TOTAL PROTEIN 7.2 6.5 - 8.0 g/dL [facility] CALCIUM 9.7 8.4 - 10.3 mg/dL [facility] ALKALINE PHOSPHATASE 66 39 - 117 U/L [facility] TOTAL BILIRUBIN 1.3(H) 0 - 1.2 mg/dL [facility] AST 21 0 - 37 U/L [facility] ALT 14 0 - 40 U/L [facility] GLOBULIN 2.9 1 - 4.8 g/dL [facility] EGFR >60 60 - 1000 mL/min/1.7 3m2 [facility] Comment:Abnormal if <60. If patient is -Croatian, multiply the result by 1.21. ANION GAP 16 10 - 20 mmol/L [facility] Blood 09/21/2017 8:54 AM EST 09/21/2017 9:00 AM EST us Petty PENALOZA LAB BLOOD BKR ORDERABLES Final Result Performing Organization Address City/State/[facility] Co de Phone Number [facility] [address] [place] [address] documented in this encounter Visit Diagnoses Diagnosis [...] documented as of this encounter Care Teams Compressor Station Chief Engineer Relationship Specialty Start Date End Date Alaina Colby MD [address] [place] [id number] [email or web address] PCP - General Internal Medicine 09/21/17 07/19/25 Simin River PA [address] [place] [phone] PCP - General Physician Loop Machine Operator 07/20/25 Alaina Colby MD [address] [place] [id number] [email or web address] Insurance Assigned Provider 01/29/21 02/25/22 documented as of this encounter Additional Source Comments The information contained in this document represents components of the legal health record. It is not the complete legal health record.[facility]
--- OUTSIDE RECORDS SUMMARY | 2025-10-21 11:50 | XMS_ITS | Clinical Summary ---
Author Organization [facility] Address [address] [place] [address] Phone Care Team Providers Care Rental Agent Name Role Phone Simin River Primary Care Provider [phone] Allergies No known active allergies Medications hydroCHLOROthiaz [...] 05/12/2024 9:52 AM EDT Plan of Treatment Health Maintenance Due Date Last Done Comments [...] VACCINE (#1) 2025 COVID-19 VACCINE (2 - season) 2025 01/12/2021 MAMMOGRAM 11/13/2025 11/13/2023, 08/23, 01/11/2021, Additional history exists POTASSIUM LEVEL 04/25/2026 [...] SODIUM 140 133 - 146 mmol/L [facility] POTASSIUM 4.0 3.3 - 5.1 mmol/L [facility] CHLORIDE 101 96 - 108 mmol/L [facility] CO2 27 21 - 35 mmol/L [facility] BUN 22(H) 6 - 19 mg/dL [facility] CREATININE 0.80 0.5 - 1.5 mg/dL [facility] GLUCOSE 84 70 - 99 mg/dL [facility] ALBUMIN 4.5 3.9 - 4.8 g/dL [facility] TOTAL PROTEIN 7.3 6.5 - 8.0 g/dL [facility] CALCIUM 9.6 8.4 - 10.3 mg/dL [facility] ALKALINE PHOSPHATASE 84 39 - 117 U/L [facility] TOTAL BILIRUBIN 0.9 0.0 - 1.2 mg/dL [facility] AST 25 0 - 37 U/L [facility] ALT 15 0 - 40 U/L [facility] GLOBULIN 2.8 1 - 4.8 g/dL [facility] EGFR 80 >59 mL/min/1.7 3m2 [facility] Comment:Estimated glomerular filtration rate calculated using the CKD-EPI refit equation. ANION GAP 16 10 - 20 mmol/L [facility] Blood 04/25/2025 10:1 0 AM EDT 04/25/2025 10:13 AM EDT Petty PENALOZA LAB BLOOD BKR ORDERABLES Final Result Performing Organization Address [facility] Co de Phone Number [address] [address] * (ABNORMAL) Lipid panel (04/25/2025 10:10 AM EDT) HDL 161 mg/dL [facility] Comment: Interpretation <40 mg/dL: Low HDL cholesterol (major risk factor for CHD) Greater than or equal to 60 mg/dL: High HDL cholesterol ( negative risk factor for CHD) HDL - cholesterol is affected by a number of factors, e.g. smoking, excerise, hormones, sex and age. CHOLESTEROL 305(H) 0 - 240 mg/dL [facility] TRIGLYCERIDES 62 30 - 160 mg/dL [facility] LDL 132(H) 50 - 129 mg/dL [facility] Comment: LDL levels in terms of risk for coronary heart disease: <100 mg/dL: Optimal 100-129 mg/dL: Near or above optimal 130-159 mg/dL: Borderline high 160-189 mg/dL: High >190 mg/dL: Very High CARDIAC RISK RATIO 1.9(L) 3.3 - 4.4 C [facility] Blood 04/25/2025 10:1 0 AM EDT 04/25/2025 10:13 AM EDT Petty PENALOZA LAB BLOOD BKR ORDERABLES Final Result Performing Organization Address [facility] Co de Phone Number [address] [address] * (ABNORMAL) BI MAMMOGRAM SCREENING WITH TOMOSYNTHESIS [...] BLUE REPLACEMENT MEDICARE PART A & B [facility] MEDICARE PPO BLUE REPLACEMENT MEDICARE PART A & B [facility] MEDICARE PPO BLUE REPLACEMENT MEDICARE PART A & B Member Subscriber Plan / Payer (Ef fective 2021-Present) Name:Joy Hayes Member ID:[id number] Relation to Subscriber:Self Name:Joy Hayes Subscriber ID:[id number] Payer ID:[id number] Group ID:Not on file Type:Medicare Address: [employer] [address] MEDICARE PPO BLUE REPLACEMENT MEDICARE PART A & B MEDICARE PPO BLUE REPLACEMENT MEDICARE PART A & B [place] BLUE REPLACEMENT Care Teams Rental Agent Relationship Specialty Start Date End Date Simin River PA [address] [place] [address] PCP - General Physician Shade Classifier 07/20/25 Additional Source Comments The information contained in this document represents components of the legal health record. It is not the complete legal health record.[facility]
--- OUTSIDE RECORDS SUMMARY | 2025-10-21 11:50 | XMS_ITS | Encounter Summary ---
Author Organization [facility] Address [address] [place] [address] Phone Care Team Providers Care Drier And Evaporator Operator Name Role Phone Alaina Colby MD Primary Care Provider Alaina Colby MD Unavailable [phone] Simin River Primary Care Provider [phone] Encounter Details Date Type Department Care Team (Latest Contact Info) Description 05/30/2018 Transcribe Orders [facility] Phleb Shari [address] Floor [place], [place] [phone] Petty Marshall PA [address] [place], [place] [id number] [email or web address] Elevated bilirubin (Primary Dx); Essential hypertension, malignant [...] EDT) SODIUM 141 133 - 146 mmol/L [facility] POTASSIUM 4.2 3.3 - 5.1 mmol/L [facility] CHLORIDE 101 96 - 108 mmol/L [facility] CO2 26 21 - 35 mmol/L [facility] BUN 20(H) 6 - 19 mg/dL [facility] CREATININE 0.80 0.5 - 1.5 mg/dL [facility] GLUCOSE 100(H) 70 - 99 mg/dL [facility] ALBUMIN 4.4 3.9 - 4.8 g/dL [facility] TOTAL PROTEIN 7.2 6.5 - 8.0 g/dL [facility] CALCIUM 9.3 8.4 - 10.3 mg/dL [facility] ALKALINE PHOSPHATASE 71 39 - 117 U/L [facility] TOTAL BILIRUBIN 1.4(H) 0.0 - 1.2 mg/dL [facility] AST 27 0 - 37 U/L [facility] ALT 18 0 - 40 U/L [facility] GLOBULIN 2.8 1 - 4.8 g/dL [facility] EGFR 80 >59 mL/min/1.7 3m2 [facility] Comment:If patient is black, multiply result by 1.159. Estimated glomerular filtration rate calculated using the CKD-EPI equation. ANION GAP 18 10 - 20 mmol/L [facility] Blood 05/30/2018 7:42 AM EDT 05/30/2018 7:47 AM EDT us Petty PENALOZA LAB BLOOD BKR ORDERABLES Final Result Performing Organization Address City/State/[facility] Co de Phone Number [address] [address] documented in this encounter Visit Diagnoses Diagnosis Elevated bilirubin- Primary Essential hypertension, malignant documented in this encounter Additional Health Concerns Infection Onset Date Last Indicated Resolved Time CDiff-Risk 05/12/2024 05/16/2024 05/16/2024 11:5 2 AM EDT CoV-Risk 05/12/2024 05/12/2024 05/23/2024 1:22 AM EDT documented as of this encounter Care Teams Drier And Evaporator Operator Relationship Specialty Start Date End Date Alaina Colby MD [address] [place] [address] [email or web address] PCP - General Internal Medicine 09/21/17 07/19/25 Simin River PA [address] [place] [address] PCP - General Physician Manager Wealth Management 07/20/25 Alaina Colby MD [address] [place] [email or web address] Insurance Assigned Provider 01/29/21 02/25/22 documented as of this encounter Additional Source Comments The information contained in this document represents components of the legal health record. It is not the complete legal health record.[facility]
--- OUTSIDE RECORDS SUMMARY | 2025-10-21 11:50 | XMS_ITS | Encounter Summary ---
Author Organization [facility] Address [address] [place] [address] Phone Care Team Providers Care Plant Puller Name Role Phone Alaina Colby MD Primary Care Provider Simin River Primary Care Provider [phone] Encounter Details Date Type Department Care Team (Late st Contact Info) Description 09/04/2022 Procedure Pass [address] [address] Social History Tobacco Use Types Packs/Day Years [...] documented as of this encounter Care Teams Plant Puller Relationship Specialty Start Date End Date Alaina Colby MD [address] [place] [address] [email or web address] PCP - General Internal Medicine 09/21/17 07/19/25 Simin River PA [address] [place] [address] PCP - General Physician Horse Trekking Guide 07/20/25 documented as of this encounter Additional Source Comments The information contained in this document represents components of the legal health record. It is not the complete legal health record.[facility]
--- OUTSIDE RECORDS SUMMARY | 2025-10-21 11:51 | XMS_ITS | Encounter Summary ---
Author Organization [facility] Address [address] [place] [address] Phone Care Team Providers Care Rd Scientist Name Role Phone Alaina Colby MD Primary Care Provider Simin River Primary Care Provider [phone] Encounter Details Date Type Department Care Team (Late st Contact Info) Description 04/11/2024 Procedure Pass [facility], [address] [address] Social History Tobacco Use Types Packs/Day Years [...] documented as of this encounter Care Teams Rd Scientist Relationship Specialty Start Date End Date Alaina Colby MD [address] [place] [address] [email or web address] PCP - General Internal Medicine 09/21/17 07/19/25 Simin River PA [address] [place] [address] PCP - General Physician Laborer Dairy Farm 07/20/25 documented as of this encounter Additional Source Comments The information contained in this document represents components of the legal health record. It is not the complete legal health record.[facility]
--- OUTSIDE RECORDS SUMMARY | 2025-10-21 11:51 | XMS_ITS | Patient Health Record ---
Author Organization [facility] Address [address] [place] [address] Care Team Providers Care Assembler Unit Name Role Phone SLIME LAO PA-C Primary Care Provider David Zaidi Jr Unavailable [phone] Allergies Allergen (clinical drug ingredient) Drug/Non Drug Allergy documented on EMR Reaction Allergy Type Onset Date Status mold,metals (uncoded) Unknown Allergy Active Reason For Referral No Information Medications Medication SIG (Take, Route, Frequency, Duration) Notes Start Date End Date Status hydroCHLOROthiazide 12.5 MG Tablet 1 tablet in the morning Orally Once a day; Duration: 30 day(s) Active Jessica Allergy 60 MG Tablet 1 tablet as needed Orally Once a day Active MiraLax (colon prep) 17 GM/SCOOP Powder mixed with Gatorade or Crystal Light Orally begin at 5:00 p.m. the day before the procedure; Duration: 1 day 09/08/2024 Active Immunizations Vaccine Route Administration Date Status Comme nts Influenza Unknown 08/15/2018 Administered Influenza Unknown 08/26/2024 Administered Social History Tobacco Use: Social History Observation Description Date Details (start date - stop date) Never Smoker NA - NA Social History Drugs/Alcohol: Social Info Question Answer Notes Alcohol Screen Did you have a drink containing alcohol in the past year? Yes How often did you have a drink containing alcohol in the past year? Monthly or less (1 point) How many drinks did you have on a typical day when you were drinking in the past year? 1 or 2 drinks (0 point) How often did you have 6 or more drinks on one occasion in the past year? 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 Problems Problem Type SNOMED Code ICD Code Onset Dates Problem Status W/U Status Risk Notes Problem Colon cancer screening (758252519) Colon cancer screening (Z12.11) Active confirmed Problem Pre-procedure evaluation check (583515587) Encounter for other preprocedural examination (Z01.818) Active confirmed Problem Long-term current use of drug therapy (558604100) extermination supervisor current use of diuretic (Z79.899) Active confirmed Plan Of Treatment Future Test Test Name Order Date COLONOSCOPY 07/16/2019 COLONOSCOPY 09/08/2024 Insurance Providers Payer Name Payer Address Payer Phone Subscriber Number Group Number Insured Name Patient Relationship to Insured Coverage Start Date Coverage End Date [facility] [address] [place] [address] [id number] DEJA [place] Self - patient is the insured Medical (General) History Medical History History ICD Code Environmental allergies Hypertension Colonoscopy 08/09, tubular adenoma, five -year followup Surgical History Surgery Date(Month/Year) lumpectomy, right breast appendectomy
--- OUTSIDE RECORDS SUMMARY | 2025-10-21 11:51 | XMS_ITS | Encounter Summary ---
Author Organization [facility] Address [address] [place] [address] Phone Care Team Providers Care Otr Truck Driver Name Role Phone Alaina Colby MD Primary Care Provider [phone] Alaina Colby MD Unavailable [phone] Simin River Primary Care Provider [phone] Encounter Details Date Type Department Care Team (Latest Contact Info) Description 04/29/2019 Transcribe Orders [facility] Phleb Shari [address] Floor [place], [place] [phone] Petty Marshall PA [address] [place], [place] [phone] [email or web address] Routine general medical examination at a health [...] (04/29/2019 9:29 AM EDT) COLOR Yellow Yellow [facility] CLARITY Clear [facility] GLUCOSE Negative Negative [facility] BILI Negative Negative [facility] KETONES Negative Negative [facility] SPECIFIC GRAVITY 1.010 1.005 - 1.030 [facility] BLOOD Negative Negative [facility] PH 7.5 5.0 - 8.0 [facility] Protein-UA Negative Negative [facility] NITRITE Negative Negative [facility] Leukocyte esterase, ur Negative Negative [facility] Urine (Urine) 04/29/2019 9:2 9 AM EDT 04/29/2019 9:31 AM EDT Petty Blume PA LAB URINE ORDERABLES Final Resu lt Performing Organization Address City/[facility]/ZIP Co de Phone Number [address] [address] * Vitamin B12 (04/29/2019 9:15 AM EDT) VITAMIN B12 254 232 - 1,245 pg/mL [facility] Blood 04/29/2019 9:15 AM EDT 04/29/2019 9:20 AM EDT [facility] PA LAB BLOOD BKR ORDERABLES Final Result Performing Organization Address [facility] Co de Phone Number [address] [address] * Folate (04/29/2019 9:15 AM EDT) FOLIC ACID 18.5 4.2 - 19.9 ng/mL [facility] Blood 04/29/2019 9:15 AM EDT 04/29/2019 9:20 AM EDT [facility] PA LAB BLOOD BKR ORDERABLES Final Result Performing Organization Address [facility] Co de Phone Number [address] [address] * CBC and differential (04/29/2019 9:15 AM EDT) WBC 3.78 3.40 - 11.20 K/uL [facility] RBC 4.79 3.80 - 4.80 M/uL [facility] HGB 14.0 12.0 - 15.0 g/dL [facility] HCT 42.2 36.0 - 46.0 % [facility] PLT 266 130 - 400 K/uL [facility] MCV 88.1 79.0 - 98.0 fL [facility] MCH 29.2 27.0 - 34.8 pg [facility] MCHC 33.2 31.5 - 36.0 g/dL [facility] RDW 12.4 10.8 - 14.6 % [facility] MPV 10.2 9.4 - 12.4 fl [facility] NRBC 0.00 0.00 /100 WBCs [facility] ABSOLUTE NRBC 0.00 0.00 K/uL [facility] DIFF METHOD Auto [facility] NEUTS 57.1 45.30 - 77.70 % [facility] LYMPHS 30.4 12.30 - 39.70 % [facility] MONOS 8.5 4.10 - 12.80 % [facility] EOS 2.4 0 - 7.2 % [facility] BASOS 1.3 0 - 2.80 % [facility] Granulocytes, immature (%) 0.3 0.0 - 0.9 % [facility] ABSOLUTE NEUTS 2.16 1.40 - 7.70 K/uL [facility] ABSOLUTE LYMPHS 1.15 0.60 - 3.20 K/uL [facility] ABSOLUTE MONOS 0.32 0.11 - 0.59 K/uL [facility] ABSOLUTE EOS 0.09 0.01 - 0.50 K/uL [facility] ABSOLUTE BASOS 0.05 0.00 - 0.08 K/uL [facility] Granulocytes, immature 0.01 0.00 - 0.05 K/uL [facility] Blood 04/29/2019 9:15 AM EDT 04/29/2019 9:20 AM EDT us Petty PENALOZA LAB BLOOD BKR ORDERABLES Final Result [facility] [address] [place] [address] * Magnesium (04/29/2019 9:15 AM EDT) MAGNESIUM 2.1 1.6 - 2.6 mg/dL [facility] Blood 04/29/2019 9:15 AM EDT 04/29/2019 9:20 AM EDT [facility] PA LAB BLOOD BKR ORDERABLES Final Result Performing Organization Address City/[facility]/ZIP Co de Phone Number [address] [address] * TSH with reflex (04/29/2019 9:15 AM EDT) Pathologist [facility] TSH 2.65 0.27 - 4.20 uIU/mL [facility] Blood 04/29/2019 9:15 AM EDT 04/29/2019 9:20 AM EDT [facility] LAB BLOOD BKR ORDERABLES Final Result Performing Organization Address [facility] Co de Phone Number [address] [address] * (ABNORMAL) Basic metabolic panel (04/29/2019 9:15 AM EDT) Pathologist [facility] SODIUM 142 133 - 146 mmol/L [facility] CHLORIDE 102 96 - 108 mmol/L [facility] POTASSIUM 4.2 3.3 - 5.1 mmol/L [facility] CO2 28 21 - 35 mmol/L [facility] BUN 16 6 - 19 mg/dL [facility] CREATININE 0.90 0.5 - 1.5 mg/dL [facility] GLUCOSE 103(H) 70 - 99 mg/dL [facility] CALCIUM 9.5 8.4 - 10.3 mg/dL [facility] EGFR 69 >59 mL/min/1.7 3m2 [facility] Comment:If patient is black, multiply result by 1.159. Estimated glomerular filtration rate calculated using the CKD-EPI equation. ANION GAP 16 10 - 20 mmol/L [facility] Blood 04/29/2019 9:15 AM EDT 04/29/2019 9:20 AM EDT us Petty PENALOZA LAB BLOOD BKR ORDERABLES Final Result [address] [address] documented in this encounter Visit Diagnoses Diagnosis [...] documented as of this encounter Care Teams Otr Truck Driver Relationship Specialty Start Date End Date Alaina Colby MD [address] [place] [address] PCP - General Internal Medicine 09/21/17 07/19/25 Simin River PA [address] [place] [address] PCP - General Physician Transcription Specialist 07/20/25 Alaina Colby MD [address] [place] [address] Insurance Assigned Provider 01/29/21 02/25/22 documented as of this encounter Additional Source Comments The information contained in this document represents components of the legal health record. It is not the complete legal health record.[facility]
--- OUTSIDE RECORDS SUMMARY | 2025-10-21 11:51 | XMS_ITS | Encounter Summary ---
Author Organization [facility] Address [address] [place] [address] Phone Care Team Providers Care Reinforced Ironworker Name Role Phone Alaina Colby MD Primary Care Provider Alaina Colby MD Unavailable [phone] Simin River Primary Care Provider [phone] Encounter Details Date Type Department Care Team (Late st Contact Info) Description 12/30/2020 Ancillary Orders Virtual Department [address] [place] [address] Alaina Colby MD [address] [place] [phone] [email or web address] Breast screening Social History Tobacco Use Types [...] documented as of this encounter Care Teams Reinforced Ironworker Relationship Specialty Start Date End Date Alaina Colby MD [address] [place] [address] [email or web address] PCP - General Internal Medicine 09/21/17 07/19/25 Simin River PA [address] [place] [address] PCP - General Physician Wellfield Technician 07/20/25 Alaina Colby MD [address] [place] [address] [email or web address] Insurance Assigned Provider 01/29/21 02/25/22 documented as of this encounter Additional Source Comments The information contained in this document represents components of the legal health record. It is not the complete legal health record.[facility]
--- OUTSIDE RECORDS SUMMARY | 2025-10-21 11:51 | XMS_ITS | Encounter Summary ---
Author Organization [facility] Address [address] [place] [address] Phone Care Team Providers Care Screen Repairer Crusher Name Role Phone Alaina Colby MD Primary Care Provider [phone] Alaina Colby MD Unavailable [phone] Simin River Primary Care Provider [phone] Encounter Details Date Type Department Care Team (Late st Contact Info) Description 11/06/2019 Ancillary Orders Virtual Department [address] [place] [address] Petty Marshall PA [address] [place] [address] [email or web address] Breast screening Social History Tobacco Use Types [...] lowers the sensitivity of mammography. POS - [id number] Narrative 12/26/2019 1:34 PM EST Bilateral mammography [...] whichlowers the sensitivity of mammography. POS - [id number] Petty PENALOZA IMG MG EXAMS Final Result documented in this encounter Visit Diagnoses Diagnosis Breast screening Breast screening, unspecified Breast screening Breast screening, unspecified documented in this encounter Additional Health Concerns Infection Onset Date Last Indicated Resolved Time CDiff-Risk 05/12/2024 05/16/2024 05/16/2024 11:5 2 AM EDT CoV-Risk 05/12/2024 05/12/2024 05/23/2024 1:22 AM EDT documented as of this encounter Care Teams Screen Repairer Crusher Relationship Specialty Start Date End Date Alaina Colby MD [address] [place] [address] PCP - General Internal Medicine 09/21/17 07/19/25 Simin River PA [address] [place] [address] PCP - General Physician School Laboratory Technician 07/20/25 Alaina Colby MD [address] [place] [email or web address] Insurance Assigned Provider 01/29/21 02/25/22 documented as of this encounter Additional Source Comments The information contained in this document represents components of the legal health record. It is not the complete legal health record.[facility]
--- OUTSIDE RECORDS SUMMARY | 2025-10-21 11:51 | XMS_ITS | Encounter Summary ---
Author Organization [facility] Address [address] [place] [address] Phone Care Team Providers Care Dsp Engineer Name Role Phone Alaina Colby MD Primary Care Provider Simin River Primary Care Provider [phone] Encounter Details Date Type Department Care Team (Late st Contact Info) Description 08/31/2023 Procedure Pass [facility], [facility] [address] [place] [address] Social History Tobacco Use Types Packs/Day Years [...] documented as of this encounter Care Teams Dsp Engineer Relationship Specialty Start Date End Date Alaina Colby MD [address] [place] [address] [email or web address] PCP - General Internal Medicine 09/21/17 07/19/25 Simin River PA [address] [place] [address] PCP - General Physician Black Oxide Operator 07/20/25 documented as of this encounter Additional Source Comments The information contained in this document represents components of the legal health record. It is not the complete legal health record.[facility]
--- OUTSIDE RECORDS SUMMARY | 2025-10-21 11:51 | XMS_ITS | Encounter Summary ---
Author Organization [facility] Address [address] [place] [address] Phone Care Team Providers Care Critical Care Nurse Name Role Phone Alaina Colby MD Primary Care Provider [phone] Alaina Colby MD Unavailable [phone] Simin River Primary Care Provider [phone] Encounter Details Date Type Department Care Team (Latest Contact Info) Description 12/24/2020 Transcribe Orders Virtual Department [address] [place] [address] Petty Marshall PA [address] [place] [address] [email or web address] Right hand pain (Primary Dx) Social History [...] documented as of this encounter Care Teams Critical Care Nurse Relationship Specialty Start Date End Date Alaina Colby MD [address] [place] [address] [email or web address] PCP - General Internal Medicine 09/21/17 07/19/25 Simin River PA [address] [place] [address] PCP - General Physician Supersonic Engineer 07/20/25 Alaina Colby MD [address] [place] [address] [email or web address] Insurance Assigned Provider 01/29/21 02/25/22 documented as of this encounter Additional Source Comments The information contained in this document represents components of the legal health record. It is not the complete legal health record.[facility]
--- OUTSIDE RECORDS SUMMARY | 2025-10-21 11:51 | XMS_ITS | Encounter Summary ---
Author Organization [facility] Address [address] [place] [address] Phone Care Team Providers Care Manager Unix Name Role Phone Alaina Colby MD Primary Care Provider Alaina Colby MD Unavailable [phone] Simin River Primary Care Provider [phone] Encounter Details Date Type Department Care Team (Late st Contact Info) Description 10/08/2018 Ancillary Orders Virtual Department [address] [place] [address] Petty Marshall PA [address] [place] [address] [email or web address] Visit for screening mammogram Social History Tobacco [...] as of this encounter Care Teams Manager Unix Relationship Specialty Start Date End Date Alaina Colby MD [address] [place] [address] [email or web address] PCP - General Internal Medicine 09/21/17 07/19/25 Simin River PA [address] [place] [address] PCP - General Physician Shop Welder 07/20/25 Alaina Colby MD [address] [place] [address] [email or web address] Insurance Assigned Provider 01/29/21 02/25/22 documented as of this encounter Additional Source Comments The information contained in this document represents components of the legal health record. It is not the complete legal health record.[facility]
--- OUTSIDE RECORDS SUMMARY | 2025-10-21 11:51 | XMS_ITS | Encounter Summary ---
Author Organization [facility] Address [address] [place] [address] Phone Care Team Providers Care Asphalt Distributor Tender Name Role Phone Alaina Colby MD Primary Care Provider [phone] Simin River Primary Care Provider [phone] Encounter Details Date Type Department Care Team (Late st Contact Info) Description 11/19/2023 Ancillary Orders [facility], [address] [address] Alaina Colby MD [address] [place] [address] [email or web address] Abnormal finding on mammography (Primary Dx) Social [...] sonographic finding present. us Alaina Colby MD IM US BREAST Final Resul t * BI [...] documented as of this encounter Care Teams Asphalt Distributor Tender Relationship Specialty Start Date End Date Alaina Colby MD [address] [place] [email or web address] PCP - General Internal Medicine 09/21/17 07/19/25 Simin River PA [address] [place] [address] PCP - General Physician Drawer Upfitter 07/20/25 documented as of this encounter Additional Source Comments The information contained in this document represents components of the legal health record. It is not the complete legal health record.[facility]
--- OUTSIDE RECORDS SUMMARY | 2025-10-21 11:51 | XMS_ITS | Encounter Summary ---
Author Organization [facility] Address [address] [place] [address] Phone Care Team Providers Care Prover Name Role Phone Alaina Colby MD Primary Care Provider Simin River Primary Care Provider [phone] Reason for Referral * MRI/CAT Scan - Closed Specialty Diagnoses / Procedures Referred By Contac t Referred To Contact Radiology Diagnoses Numbness Lumbosacral radiculopathy at L5 Procedures MRI Lumbar Spine CHG MRI, LUMBAR SPINE COMBO CHG MRI, LUMBAR SPINE CONTRAST Keith Nassar MD [address] [place] [address], [address] [place] [address] Phone: tel: fax: [email or web address] Referral ID Status Reason Start Date Expiration Date Visits Re quested Visits Authorized [id number] Closed 04/11/2024 06/08/2024 1 1 Encounter Details Date Type Department Care Team (Latest Contact Info) Description 04/11/2024 Transcribe Orders Virtual Department 30 [place] [address] Keith Nassar MD [address] [place] [address], [address] [place], [place] [phone] [email or web address] Numbness (Primary Dx); Lumbosacral radiculopathy at [...] clinician's provided indication for this examination in Epic: Outside Radiology Order; numbness TECHNIQUE: MRI LUMBAR [...] clinician's provided indication for this examination in Epic:Outside Radiology Order; numbness TECHNIQUE: MRI LUMBAR SPINE [...] small perineural cysts on the LEFT side [id number] and over the sacral segments. Findings by [...] L4-L5, otherwise, no significantspinal or foraminal stenosis. us Keith Nassar MD IMG MR XSPECIALTY Final [...] documented as of this encounter Care Teams Prover Relationship Specialty Start Date End Date Alaina Colby MD [address] [place] [address] [email or web address] PCP - General Internal Medicine 09/21/17 07/19/25 Simin River PA [address] [place] [address] PCP - General Physician Bow Maker Machine Tender 07/20/25 documented as of this encounter Additional Source Comments The information contained in this document represents components of the legal health record. It is not the complete legal health record.[facility]
--- OUTSIDE RECORDS SUMMARY | 2025-10-21 11:51 | XMS_ITS | Encounter Summary ---
Author Organization [facility] Address [address] [place] [address] Phone Care Team Providers Care Machinist Tool And Die Name Role Phone Alaina Colby MD Primary Care Provider Simin River Primary Care Provider [phone] Encounter Details Date Type Department Care Team (Latest Contact Info) Description 09/04/2022 Transcribe Orders Virtual Department 30 [place] [address] Petty Marshall PA [address] [place] [address] [email or web address] Encounter for screening mammogram for malignant neoplasm [...] abnormalities are seen. Procedure Note Maria Luisa aSldana MD - 09/15/2022 STUDY: BI MAMMOGRAM SCREENING [...] documented as of this encounter Care Teams Machinist Tool And Die Relationship Specialty Start Date End Date Alaina Colby MD [address] [place] [address] PCP - General Internal Medicine 09/21/17 07/19/25 Simin River PA [address] [place] [address] PCP - General Physician Assistant Professor Of Business 07/20/25 documented as of this encounter Additional Source Comments The information contained in this document represents components of the legal health record. It is not the complete legal health record.[facility]
--- OUTSIDE RECORDS SUMMARY | 2025-10-21 11:51 | XMS_ITS | Encounter Summary ---
Author Organization [facility] Address [address] [place] [address] Phone Care Team Providers Care Senior Accountant Name Role Phone Alaina Colby MD Primary Care Provider Alaina Colby MD Unavailable [phone] Simin River Primary Care Provider [phone] Encounter Details Date Type Department Care Team (Late st Contact Info) Description 12/30/2020 Procedure Pass [facility], [address] [address] Social History Tobacco Use Types Packs/Day Years [...] documented as of this encounter Care Teams Senior Accountant Relationship Specialty Start Date End Date Alaina Colby MD [address] [place] [address] [email or web address] PCP - General Internal Medicine 09/21/17 07/19/25 Simin River PA [address] [place] [address] PCP - General Physician Self Pay Collector 07/20/25 Alaina Colby MD [address] [place] [address] [email or web address] Insurance Assigned Provider 01/29/21 02/25/22 documented as of this encounter Additional Source Comments The information contained in this document represents components of the legal health record. It is not the complete legal health record.[facility]
--- OUTSIDE RECORDS SUMMARY | 2025-10-21 11:51 | XMS_ITS | Encounter Summary ---
Author Organization [facility] Address [address] [place] [address] Phone Care Team Providers Care Director Of Accreditation Name Role Phone Alaina Colby MD Primary Care Provider Simin River Primary Care Provider [phone] Encounter Details Date Type Department Care Team (Late st Contact Info) Description 11/19/2023 Procedure Pass [facility], [address] [address] Social History Tobacco Use Types Packs/Day Years [...] documented as of this encounter Care Teams Director Of Accreditation Relationship Specialty Start Date End Date Alaina Colby MD [address] [place] [address] [email or web address] PCP - General Internal Medicine 09/21/17 07/19/25 Simin River PA [address] [place] [address] PCP - General Physician Color Print Inspector 07/20/25 documented as of this encounter Additional Source Comments The information contained in this document represents components of the legal health record. It is not the complete legal health record.[facility]
--- OUTSIDE RECORDS SUMMARY | 2025-10-21 11:51 | XMS_ITS | Encounter Summary ---
Author Organization [facility] Address [address] [place] [address] Phone Care Team Providers Care Pill Packer Name Role Phone Alaina Colby MD Primary Care Provider Simin River Primary Care Provider [phone] Encounter Details Date Type Department Care Team (Latest Contact Info) Description 03/18/2025 Transcribe Orders Virtual Department 30 [place] [address] Petty Marshall PA [address] [place], [place] [id number] [email or web address] Breast screening (Primary Dx) Social History Tobacco [...] as of this encounter Plan of Treatment Scheduled Orders Name Type Priority Associated Diagnoses Orde r Schedule Mammogram Screening (Bilateral) Imaging Routine Breast screening Expected: 04/18/2025, Expires: 03/18/2026 documented as of this encounter Visit Diagnoses Diagnosis Breast screening- Primary Breast screening, unspecified documented in this encounter Care Teams Pill Packer Relationship Specialty Start Date End Date Alaina Colby MD [address] [place] [address] [email or web address] PCP - General Internal Medicine 09/21/17 07/19/25 Simin River PA [address] [place] [address] PCP - General Physician Promotor Group Ticket Sales 07/20/25 documented as of this encounter Additional Source Comments The information contained in this document represents components of the legal health record. It is not the complete legal health record.[facility]
== END 2025-10-21 11:29 | disposition home or self-care (01) ==
PROVIDERS: PCP Physician Assistant Medical; Visit Provider Nurse Practitioner Family
DX: R05.9 Cough, unspecified (principal)

== ENCOUNTER → 2025-10-21 10:36 | Outpatient (BNVA) | payer MEDICARE, SELFPAY | PROVIDERS: PCP Physician Assistant Medical; Visit Provider Nurse Practitioner Family | DX: R05.9 Cough, unspecified (principal) | CPT/HCPCS: 99212 ==